=== PATIENT | female | born 1945 | race Caucasian/White ===

== ENCOUNTER 2021-06-01 07:13 | Emergency (ER) | payer OTHER ==
[~2021-06-01] VITALS: Ht 167.6 cm; Wt 74.8 kg
[2021-06-01] MEDS ORDERED: ASPirin 81 mg TAB PO ONE (07:30)
[2021-06-01 07:37] LABS: Basophils # (auto) 0.1 10 ^3/uL (0-0.2); Basophils % (auto) 1.1 % (0.0-2.0); Eosinophils # (auto) 0.3 10 ^3/uL (0-0.8); Eosinophils % (auto) 3.6 % (0.0-7.0); Hemoglobin 12.1 g/dL (12.2-16.2); Lymphocytes # (auto) 1.4 10 ^3/uL (0.4-5.4); Lymphocytes % (auto) 18.4 % (10.0-50.0); Mean Corpuscular Hemoglobin 29.8 pg (28.0-32.0); Mean Corpuscular Hgb Conc. 33.7 g/dL (32.0-36.0); Mean Corpuscular Volume 88.3 fL (80.0-100.0); Monocytes # (auto) 0.6 10 ^3/uL (0-1.3); Neutrophils # (auto) 5.3 10 ^3/uL (1.6-8.6); Neutrophils % (auto) 68.9 % (37.0-80.0); Red Blood Cells 4.08 10^6/uL (4.0-5.20); Red Cell Distribution Width 13.4 % (11.8-14.3); White Blood Cell 7.8 10^3/uL (4.4-10.8)
[2021-06-01 07:55] LABS: Albumin 3.6 g/dL (3.4-5.0); Anion Gap 15 (5-15); BUN/Creatinine Ratio 22.5; Blood Urea Nitrogen 23 mg/dL (7-18); Calcium 9.4 mg/dL (8.5-10.1); Carbon Dioxide 22 mmol/L (21-32); Chloride 105 mmol/L (98-107); GFR African American 68 mL/min; GFR Non-African American 56 mL/min; Glucose 125 mg/dL (74-106); Potassium 3.5 mmol/L (3.5-5.1); Sodium 142 mmol/L (136-145)
[2021-06-01 08:00] LABS: Alanine Aminotransferase 25 U/L (13-56); Alkaline Phosphatase 56 U/L (45-117); Aspartate Aminotransferase 15 U/L (15-37); Bilirubin, Total 0.5 mg/dL (0.2-1.0)
[2021-06-01 08:02] LABS: Urine Bacteria NONE SEEN /hpf (None Seen); Urine Blood Negative /uL (Negative); Urine Specific Gravity 1.018 (1.001-1.035); Urine WBC <1 /hpf (0 - 5)
[2021-06-01] MEDS ORDERED: cefTRIAXone 1GM/50ML D5W 50 ML IV ONE (13:00)
[2021-06-01] MEDS ORDERED: PANT40TA2 PO (14:48)
[2021-06-01 16:00] VITALS: BP 129/70
== END 2021-06-01 16:55 | disposition home or self-care (01) ==
LOC: ER 07:13
DX: I24.9 Acute ischemic heart disease, unspecified (principal); E11.9 Type 2 diabetes mellitus without complications; I10 Essential (primary) hypertension; Z88.2 Allergy status to sulfonamides; Z20.822 Contact with and (suspected) exposure to COVID-19
CPT/HCPCS: 36415; 71045; 80053; 81001; 84484; 85025; 87426; 93005; 93306; 96365; 96366; 99285; C9803; J0696; U0003

== ENCOUNTER → 2023-01-11 | Day surgery (SDC) | payer MEDICARE, BC ==
[2023-01-10 09:35] LABS: Basophils # (auto) 0.1 10 ^3/uL (0-0.2); Basophils % (auto) 0.9 % (0.0-2.0); Eosinophils # (auto) 0.5 10 ^3/uL (0-0.8); Eosinophils % (auto) 6.4 % (0.0-7.0); Hematocrit 35.9 % (36.0-46.0); Hemoglobin 11.8 g/dL (12.2-16.2); Lymphocytes # (auto) 1.2 10 ^3/uL (0.4-5.4); Lymphocytes % (auto) 17.2 % (10.0-50.0); Mean Corpuscular Hemoglobin 28.1 pg (28.0-32.0); Mean Corpuscular Hgb Conc. 32.8 g/dL (32.0-36.0); Mean Corpuscular Volume 85.7 fL (80.0-100.0); Monocytes # (auto) 0.8 10 ^3/uL (0-1.3); Monocytes % (auto) 10.6 % (0.0-12.0); Neutrophils # (auto) 4.6 10 ^3/uL (1.6-8.6); Neutrophils % (auto) 64.9 % (37.0-80.0); Nucleated Red Blood Cells % 0.1 %; Red Cell Distribution Width 14.7 % (11.8-14.3); White Blood Cell 7.1 10^3/uL (4.4-10.8)
[2023-01-10 09:51] LABS: INR 1.01 (0.9-1.15); Partial Thromboplastin Time 27.2 sec (24.6-33.4)
[2023-01-10 10:46] LABS: Potassium 3.4 mmol/L (3.5-5.1)
[2023-01-10 10:53] LABS: Albumin 3.4 g/dL (3.4-5.0); Bilirubin, Total 0.6 mg/dL (0.2-1.0); Calcium 9.2 mg/dL (8.5-10.1); Total Protein 7.4 g/dL (6.4-8.2)
[~2023-01-11] VITALS: Ht 167.6 cm; Wt 72.6 kg
[~2023-01-11] MED LIST: AML5T PO; LIDOCAINE VISCOUS 2% 15ML UD ONE; LOSA25TA38 PO; METF-370 PO; MIDAZOLAM HCL 2MG/2ML 2ml VIAL (1mg/ml) ONE; PANT40TA2 PO; PERCOT PO; PREG50CA PO; SIMV-8 PO
[2023-01-11] MEDS: diphenhdrAMINE HCL 50 MG/1 ML VL ONE ×2 (13:19→13:20)
[2023-01-11] MEDS: MIDAZOLAM HCL 2MG/2ML 2ml VIAL (1mg/ml) ONE ×2 (13:19→13:22)
[2023-01-11] MEDS: fentaNYL CITRATE 100 MCG/2 ML VL ONE ×2 (13:19→13:22)
[2023-01-11 14:05] VITALS: BP 118/46
== END | disposition home or self-care (01) ==
LOC: GI 10:49
PROVIDERS: ATTEND Internal Medicine Gastroenterology
DX: D64.9 Anemia, unspecified (principal); K44.9 Diaphragmatic hernia without obstruction or gangrene; K25.9 Gastric ulcer, unspecified as acute or chronic, without hemorrhage or perforation; K29.50 Unspecified chronic gastritis without bleeding; E11.9 Type 2 diabetes mellitus without complications
CPT/HCPCS: 36415; 43239; 80053; 82962; 85025; 85610; 85730; J1200; J2250; J3010; J7030

== ENCOUNTER → 2023-05-21 | Outpatient (CLI) | payer MEDICARE, BC ==
[~2023-05-21] MED LIST changes: -LIDOCAINE VISCOUS 2% 15ML UD ONE; +LOSA25TA15 PO; -LOSA25TA38 PO; -MIDAZOLAM HCL 2MG/2ML 2ml VIAL (1mg/ml) ONE; -SIMV-8 PO; +SIMV20TA20 PO
[2023-05-21 07:40] LABS: Basophils # (auto) 0.1 10 ^3/uL (0-0.2); Basophils % (auto) 1.1 % (0.0-2.0); Eosinophils # (auto) 0.5 10 ^3/uL (0-0.8); Eosinophils % (auto) 6.8 % (0.0-7.0); Hemoglobin 11.8 g/dL (12.2-16.2); Lymphocytes # (auto) 1.9 10 ^3/uL (0.4-5.4); Mean Corpuscular Hgb Conc. 32.8 g/dL (32.0-36.0); Mean Corpuscular Volume 85.5 fL (80.0-100.0); Monocytes # (auto) 0.7 10 ^3/uL (0-1.3); Monocytes % (auto) 10.3 % (0.0-12.0); Neutrophils # (auto) 3.9 10 ^3/uL (1.6-8.6); Neutrophils % (auto) 54.8 % (37.0-80.0); Red Blood Cells 4.21 10^6/uL (4.0-5.20); Red Cell Distribution Width 15.2 % (11.8-14.3); White Blood Cell 7.2 10^3/uL (4.4-10.8)
[2023-05-21 08:35] LABS: Alanine Aminotransferase 17 U/L (7-40); Albumin 4.5 g/dL (3.2-4.8); Alkaline Phosphatase 81 U/L (46-116); Anion Gap 10.4 (5-15); Aspartate Aminotransferase 13 U/L (13-40); BUN/Creatinine Ratio 16.8 (10.0-20.0); Bilirubin, Total 0.6 mg/dL (0.2-1.0); Blood Urea Nitrogen 18 mg/dL (9-23); Calcium 9.4 mg/dL (8.5-10.1); Carbon Dioxide 24.6 mmol/L (20-30); Chloride 103 mmol/L (98-107); Glucose 111 mg/dL (74-106); Potassium 3.6 mmol/L (3.5-5.1); Sodium 138 mmol/L (136-145)
[2023-05-21 08:38] LABS: % Iron Saturation 14.1 % (15-50)
[2023-05-21 09:34] LABS: Carcinoembryonic Antigen 1.16 ng/mL (<=5.0); Folate (Folic Acid) > 24.00 ng/mL (>5.38)
[2023-05-21 09:36] LABS: Ferritin 30.5 ng/mL (10-291)
== END | disposition home or self-care (01) ==
LOC: LAB 06:49
PROVIDERS: ATTEND Internal Medicine Gastroenterology
DX: R97.8 Other abnormal tumor markers (principal); D64.9 Anemia, unspecified
CPT/HCPCS: 36415; 80053; 82274; 82378; 82607; 82728; 82746; 83540; 83550; 85025

== ENCOUNTER 2023-10-12 16:05 | Inpatient (IN) | payer MEDICARE, BC ==
[~2023-10-12] VITALS: Ht 167.6 cm; Wt 81.1 kg
[2023-10-12 16:40] VITALS: PULSE 115; RESP 20; O2SAT 95
[2023-10-12] MEDS ORDERED: SODIUM CHLORIDE 0.9% 1,000 ML IV ONE (16:45)
[2023-10-12 17:26] LABS: Basophils # (auto) 0 10 ^3/uL (0-0.2); Basophils % (auto) 0.3 % (0.0-2.0); Eosinophils # (auto) 0.2 10 ^3/uL (0-0.8); Eosinophils % (auto) 1.6 % (0.0-7.0); Hematocrit 33.5 % (36.0-46.0); Hemoglobin 10.8 g/dL (12.2-16.2); Lymphocytes # (auto) 0.4 10 ^3/uL (0.4-5.4); Lymphocytes % (auto) 3.2 % (10.0-50.0); Mean Corpuscular Hemoglobin 28.2 pg (28.0-32.0); Mean Corpuscular Hgb Conc. 32.4 g/dL (32.0-36.0); Mean Corpuscular Volume 86.9 fL (80.0-100.0); Monocytes # (auto) 0.8 10 ^3/uL (0-1.3); Monocytes % (auto) 6.8 % (0.0-12.0); Neutrophils % (auto) 88.1 % (37.0-80.0); Nucleated Red Blood Cells % 0.1 %; Red Blood Cells 3.85 10^6/uL (4.0-5.20); Red Cell Distribution Width 15.2 % (11.8-14.3); White Blood Cell 11.3 10^3/uL (4.4-10.8)
[2023-10-12 17:43] LABS: Alanine Aminotransferase 20 U/L (7-40); Albumin 4.3 g/dL (3.2-4.8); Alkaline Phosphatase 72 U/L (46-116); Anion Gap 10 (5-15); Aspartate Aminotransferase 29 U/L (13-40); BUN/Creatinine Ratio 12.7 (10.0-20.0); Blood Urea Nitrogen 13 mg/dL (9-23); Carbon Dioxide 25 mmol/L (20-30); Chloride 105 mmol/L (98-107); Glucose 171 mg/dL (74-106); Magnesium 1.5 mg/dL (1.6-2.6); Potassium 3.6 mmol/L (3.5-5.1); Sodium 140 mmol/L (136-145)
[2023-10-12 17:44] LABS: Bilirubin, Total 0.7 mg/dL (0.2-1.0); Total Protein 6.8 g/dL (5.7-8.2)
[2023-10-12 19:09] LABS: Lactic Acid w/Reflex 3.1 mmol/L (0.4-2.0)
[2023-10-12] MEDS ORDERED: LACTATED RINGER'S 1,000 ML IV ONE (19:15)
[2023-10-12 19:55] VITALS: PULSE 111; O2SAT 95
[2023-10-12 21:49] LABS: Urine Epithelial Cast None Seen /hpf (<5)
[2023-10-12 22:00] LABS: COVID19 ANTIGEN SOFIA FIA NEGATIVE (NEGATIVE); Rapid Influenza A Negative (Negative); Rapid Influenza B Negative (Negative)
[2023-10-12 22:03] LABS: Urine Bacteria NONE SEEN /hpf (None Seen); Urine Blood Negative /uL (Negative); Urine Clarity Clear (Clear); Urine Color Colorless (Yellow); Urine Protein, UAD Negative (Negative); Urine Specific Gravity 1.007 (1.001-1.035); Urine Urobilinogen Normal (Negative); Urine WBC 2 /hpf (0 - 5); Urine pH 6.5 (5.0-8.0)
[2023-10-12] MEDS ORDERED: CEPH250C PO (22:28)
[2023-10-12] MEDS ORDERED: cefTRIAXone 1GM/50ML D5W 50 ML IV ONE (22:30)
[2023-10-12] MEDS: MAGNESIUM SULFATE 1GM/100ML 100 ML IV SCH (22:49)
[2023-10-12] MEDS ORDERED: DEXTROSE (50%) 50ML SYRG IV PRN (23:30)
[2023-10-12] MEDS ORDERED: MORPHINE SULFATE INJ 2 MG/ml SYRG IV PRN (23:30)
[2023-10-12] MEDS ORDERED: ONDANSETRON HCL 4 MG/2 ML VIAL IV PRN (23:30)
[2023-10-12] MEDS ORDERED: NITROGLYCERIN 0.4 MG SL TAB SL PRN (23:30)
[2023-10-12] MEDS ORDERED: DOCUSATE SOD 100 MG CAP PO PRN (23:30)
[2023-10-12] MEDS ORDERED: ACETAMINOPHEN 325 MG TAB PO PRN (23:30)
[2023-10-12] MEDS ORDERED: MELATONIN 5 MG TAB ONE (23:58)
[2023-10-13] MEDS: MAGNESIUM SULFATE 1GM/100ML 100 ML IV SCH ×2 (00:09→00:11)
[2023-10-13] MEDS ORDERED: MAGNESIUM SULFATE 1GM/100ML 100 ML IV ONE (00:10)
[2023-10-13 04:48] LABS: Basophils # (auto) 0 10 ^3/uL (0-0.2); Basophils % (auto) 0.5 % (0.0-2.0); Eosinophils # (auto) 0.3 10 ^3/uL (0-0.8); Hematocrit 32.2 % (36.0-46.0); Hemoglobin 10.3 g/dL (12.2-16.2); Lymphocytes # (auto) 0.9 10 ^3/uL (0.4-5.4); Lymphocytes % (auto) 10.3 % (10.0-50.0); Mean Corpuscular Hemoglobin 27.9 pg (28.0-32.0); Mean Corpuscular Hgb Conc. 31.8 g/dL (32.0-36.0); Mean Corpuscular Volume 87.6 fL (80.0-100.0); Monocytes # (auto) 0.9 10 ^3/uL (0-1.3); Monocytes % (auto) 9.5 % (0.0-12.0); Neutrophils # (auto) 6.9 10 ^3/uL (1.6-8.6); Neutrophils % (auto) 76.7 % (37.0-80.0); Nucleated Red Blood Cells % 0.1 %; Red Blood Cells 3.68 10^6/uL (4.0-5.20); Red Cell Distribution Width 15.3 % (11.8-14.3)
[2023-10-13 05:09] LABS: Alanine Aminotransferase 14 U/L (7-40); Alkaline Phosphatase 61 U/L (46-116); Anion Gap 7 (5-15); Aspartate Aminotransferase 17 U/L (13-40); Blood Urea Nitrogen 7 mg/dL (9-23); Calcium 8.5 mg/dL (8.7-10.4); Carbon Dioxide 27 mmol/L (20-30); Chloride 108 mmol/L (98-107); Glucose 109 mg/dL (74-106); Potassium 3.4 mmol/L (3.5-5.1); Sodium 142 mmol/L (136-145)
[2023-10-13 05:10] LABS: Albumin 3.7 g/dL (3.2-4.8); Bilirubin, Total 0.7 mg/dL (0.2-1.0); Total Protein 5.8 g/dL (5.7-8.2)
[2023-10-13] MEDS: SODIUM CHLOR 0.9% PF (SALINE LOCK) 10ML VIAL/SYR IV SCH ×3 (06:52→21:59)
[2023-10-13] MEDS: ACCU-CHEK COMFORT CURVE STRIP VI SCH ×4 (07:00→21:59)
[2023-10-13] MEDS: InsuLIN REG 1unit/0.01ml Soln (100units/ml) SC SCH ×3 (07:50→16:58)
[2023-10-13 08:10] VITALS: RESP 20; O2SAT 96
[2023-10-13] MEDS: cefTRIAXone 1GM/50ML D5W 50 ML IV SCH (08:34)
[2023-10-13] MEDS: HYDROcodone-ACET 5/325MG TAB PO PRN ×2 (13:17→21:15)
[2023-10-13] MEDS: SODIUM CHLORIDE 0.9% 1,000 ML IV SCH ×2 (13:49→21:03)
[2023-10-13 19:40] VITALS: PULSE 89; RESP 17; O2SAT 95
[2023-10-13] MEDS ORDERED: InsuLIN REG 1unit/0.01ml Soln (100units/ml) SC SCH (22:00)
[2023-10-13] MEDS ORDERED: METH-1181 PO (23:42)
[2023-10-13 23:50] VITALS: PULSE 94; RESP 18; O2SAT 98
[2023-10-14] VITALS (7 sets, daily range): BP systolic 116–135; BP diastolic 48–62; PULSE 82–97; RESP 16–19; TEMP 97.7–98; O2SAT 93–98
[2023-10-14] MEDS: HYDROcodone-ACET 5/325MG TAB PO PRN ×3 (04:37→23:10)
[2023-10-14] MEDS: SODIUM CHLORIDE 0.9% 1,000 ML IV SCH ×3 (04:39→21:17)
[2023-10-14] MEDS: ACCU-CHEK COMFORT CURVE STRIP VI SCH (06:06)
[2023-10-14] MEDS: SODIUM CHLOR 0.9% PF (SALINE LOCK) 10ML VIAL/SYR IV SCH ×3 (06:06→21:14)
[2023-10-14] MEDS: InsuLIN REG 1unit/0.01ml Soln (100units/ml) SC SCH (06:06)
[2023-10-14] MEDS: PANTOPRAZOLE 40 MG TAB PO SCH (09:20)
[2023-10-14] MEDS: cefTRIAXone 1GM/50ML D5W 50 ML IV SCH (09:20)
[2023-10-14] MEDS: metFORMIN HYDROCHLORIDE 500 MG TAB PO SCH ×2 (10:00→20:20)
[2023-10-14] MEDS ORDERED: TEMAZEPAM 15 MG CAP PO ONE ×2 (22:00)
[2023-10-15 05:00] VITALS: BP 142/52; PULSE 94; RESP 16; TEMP 97.9; O2SAT 95
[2023-10-15] MEDS: SODIUM CHLOR 0.9% PF (SALINE LOCK) 10ML VIAL/SYR IV SCH ×2 (06:32→14:00)
[2023-10-15] MEDS: HYDROcodone-ACET 5/325MG TAB PO PRN (06:32)
[2023-10-15] MEDS: SODIUM CHLORIDE 0.9% 1,000 ML IV SCH ×2 (06:33→12:22)
[2023-10-15 08:00] VITALS: PULSE 87
[2023-10-15 09:00] VITALS: BP 146/62; PULSE 84; RESP 19; TEMP 98; O2SAT 96
[2023-10-15] MEDS: cefTRIAXone 1GM/50ML D5W 50 ML IV SCH (09:00)
[2023-10-15] MEDS ORDERED: CIPR-173 PO (09:56)
[2023-10-15] MEDS: metFORMIN HYDROCHLORIDE 500 MG TAB PO SCH (11:01)
[2023-10-15] MEDS: PANTOPRAZOLE 40 MG TAB PO SCH (11:01)
[2023-10-15 13:00] VITALS: BP 136/61; PULSE 87; RESP 19; TEMP 97.8; O2SAT 95
== END 2023-10-15 15:45 | disposition home or self-care (01) | DRG 872 ==
LOC: ER 16:05 → EDBD 16:05 → TELE 23:26 → TELE-CENTR 10-13 23:03
PROVIDERS: ADMIT Nurse Practitioner Family; ATTEND Family Medicine
DX: A41.9 Sepsis, unspecified organism (principal); E87.21 Acute metabolic acidosis; N39.0 Urinary tract infection, site not specified; E83.42 Hypomagnesemia; E11.65 Type 2 diabetes mellitus with hyperglycemia; Z20.822 Contact with and (suspected) exposure to COVID-19; G47.00 Insomnia, unspecified; I10 Essential (primary) hypertension
CPT/HCPCS: 36415; 71045; 80053; 81001; 82962; 83605; 83735; 85025; 87040; 87086; 87426; 87804; 93005; 96360; 96361; G0378

== ENCOUNTER 2024-07-11 06:27 | Emergency (ER) | payer MEDICARE, BC ==
[~2024-07-11] VITALS: Ht 167.6 cm; Wt 73.4 kg
[~2024-07-11 06:27] MED LIST changes: +CEPH250C PO; +CIPR-173 PO; +LOSA-533 PO; -LOSA25TA15 PO; +METH-1181 PO; -PANT40TA2 PO
[2024-07-11 07:10] VITALS: BP 131/61; PULSE 105; RESP 18; TEMP 97.8; O2SAT 95
[2024-07-11] MEDS: cefTRIAXone SOD 1,000 MG VL IM ONE (07:19)
[2024-07-11] MEDS: cefTRIAXone SOD 1,000 MG VL ONE (07:32)
[2024-07-11] MEDS ORDERED: AZIT-185 PO (07:51)
[2024-07-11] MEDS ORDERED: BENZ200C64 PO (07:51)
== END 2024-07-11 07:49 | disposition home or self-care (01) ==
LOC: ER 06:27
DX: J02.9 Acute pharyngitis, unspecified (principal); J20.9 Acute bronchitis, unspecified; Z88.2 Allergy status to sulfonamides
CPT/HCPCS: 71046; 96372; 99283; J0696

== ENCOUNTER 2025-07-16 19:51 | Inpatient (IN) | payer BC, MEDICARE, OTHER ==
[~2025-07-16] VITALS: Ht 167.6 cm; Wt 77.7 kg
[~2025-07-16 19:51] MED LIST changes: +AZIT-185 PO; +BENZ200C64 PO
[2025-07-16 21:09] LABS: Hematocrit 31.8 % (36.0-46.0); Hemoglobin 10.4 g/dL (12.2-16.2); Mean Corpuscular Hemoglobin 28.9 pg (28.0-32.0); Mean Corpuscular Volume 88.0 fL (80.0-100.0); Nucleated Red Blood Cells % 0.1 %
--- NOTE | 2025-07-16 21:14 | DVH ---
Exam: CT CT AB PEL WO CON-NO ORAL OR IV History: abd pain Comparison Study: US ABDOMEN COMPLETE on DOS: 07/05/25, XR ABDOMEN 2 VIEW on DOS: 07/05/25, CT CT AB PEL WO CON-NO ORAL OR IV on DOS: 12/14/22, ECIDC on DOS: 06/01/21 TECHNIQUE: Multidetector CT of the abdomen and pelvis was performed from lung bases to pubic symphysi s. Imaging was performed without IV contrast. Axial, coronal, and sagittal multiplanar reformats were obtained from the axial data set by the technologist. RADIATION DOSE: CTDI vol 22.35 mGy. DLP 1174.48 mGy.cm Findings: Limited evaluation of the solid organs in the absence of IV contrast. Lungs: The lung bases are clear. Liver: Unremarkable. Spleen: Unremarkable. Pancreas: Unremarkable. Gallbladder: Unremarkable. Adrenals: Unchanged indeterminate 2 cm left adrenal nodule. Kidneys: Unremarkable. Pelvic Viscera: Evaluation is degraded by streak artifact from adjacent hardware. Vasculature: Atherosclerotic aortoiliac calcification. Retroperitoneum: Shotty retroperitoneal nodes. Bowel: Evaluation of the bowel within the pelvis is limited due to streak artifact from adjacent hip hardware. There is suggestion of mild stranding about the sigmoid colon, suboptimally assessed. Colon ic diverticulosis without definite CT evidence of diverticulitis. No bowel obstruction. Small hiatal hernia. Musculoskeletal: Bilateral hip arthroplasties. Soft tissues: Unremarkable Impression: 1. Evaluation of the pelvis is degraded by streak artifact, though there is suggestion of colonic div erticulosis with possible stranding about the sigmoid colon. Acute diverticulitis cannot be excluded in the appropriate clinical setting. 2. Additional findings as detailed.
--- NOTE | 2025-07-16 21:16 | DVH ---
CHEST RADIOGRAPH Indication: cp Technique: Single frontal view of the chest was obtained COMPARISON: CR CHEST 2 VIEW on DOS: 09/10/24, XY CHEST TWO VIEWS ROUTINE on DOS: 07/11/24, XY CHEST P ORTABLE on DOS: 10/12/23, XY CHEST XRAY 1 VIEW on DOS: 12/14/22, CHEST PORTABLE on DOS: 06/01/21 FINDINGS: Lines and Tubes: None Lungs: Clear Pleura: No effusion. No pneumothorax. Cardiomediastinal contours: Unremarkable Bones: Unremarkable IMPRESSION: 1. No acute disease.
[2025-07-16 21:25] LABS: Alanine Aminotransferase 19 U/L (7-40); Albumin 4.1 g/dL (3.2-4.8); Alkaline Phosphatase 71 U/L (46-116); Anion Gap 13 (5-15); BUN/Creatinine Ratio 16.1 (10.0-20.0); Bilirubin, Total 0.8 mg/dL (0.2-1.0); Blood Urea Nitrogen 24 mg/dL (9-23); Carbon Dioxide 23 mmol/L (20-31); Chloride 99 mmol/L (98-107); Glucose 134 mg/dL (74-106); Potassium 3.9 mmol/L (3.5-5.1); Sodium 135 mmol/L (136-145); Total Protein 6.6 g/dL (5.7-8.2)
[2025-07-16 21:26] LABS: Calcium 8.4 mg/dL (8.7-10.4)
[2025-07-16] MEDS: SODIUM CHLORIDE 0.9% 1,800 ML IV ONE (21:30)
[2025-07-16 21:55] LABS: Lactic Acid w/Reflex 3.2 mmol/L (0.4-2.0)
[2025-07-16 22:26] LABS: Urine Protein, UAD 1+ (Negative)
[2025-07-16] MEDS: VANCOMYCIN 1GM/250ML KIT 250 ML IV ONE (22:46)
--- NOTE | 2025-07-16 22:47 | ED.PDOC ---
History of Present Illness HPI Comments Patient brought in by EMS. Patient was complaining of intermittent nausea vomiting. States it happened approximately 20 minutes ago. She felt cold and chills so she called EMS to come in. Patient has a history of recurrent UTIs. Has had sepsis in the past. Nothing makes it better, nothing makes it worse. Chief Complaint: Nausea/Vomiting Time Seen by MD: 20:07 Primary Care Provider: Reviewed Notes: Nurses Notes Allergies: Coded Allergies: Sulfa Antibiotics (Verified Allergy, Unknown, 06/01/21) Home Meds Active Scripts Benzonatate (Benzonatate) 200 Mg Cap, 1 CAP PO TID, #30 CAP Prov:EMELINA SZYMANSKI 07/11/24 Azithromycin (ZITHROMAX TABLET) 250 Mg Tb, 250 MG PO DAILY, #6 TAB Prov:EMELINA SZYMANSKI 07/11/24 Ciprofloxacin Hcl (Cipro) 500 Mg Tab, 1 TAB PO BID, #14 TAB Prov:OLGA LIDIA KLINE MD 10/15/23 Cephalexin (KEFLEX CAPSULE) 250 Mg Cp, 1 CAP PO QID, #40 CAP Prov:LIVAN NIEVES MD 10/12/23 Reported Medications Methocarbamol (Methocarbamol) 500 Mg Tab, 1 TAB PO Q6HPRN PRN for muscle spasm 10/13/23 Pregabalin (Lyrica) Unknown Strength Cap, PO, CAP 01/10/23 Amlodipine Besylate (NORVASC TABLET) 5 Mg Tb, 5 MG PO DAILY, TAB 01/10/23 Losartan Potassium (Losartan Potassium) 25 Mg Tab, 25 MG PO DAILY, TAB 01/10/23 Metformin Hydrochloride (Metformin Hcl) 500 Mg Tab, 500 MG PO BID, TAB 01/10/23 Simvastatin (Simvastatin) 20 Mg Tab, 20 MG PO DAILY, TAB 01/10/23 Oxycodone W/ Acetaminophen (Percocet 5/325MG) 1 Tab Tb, 1 TAB PO Q4HPRN PRN for prn, #90 TAB 12/15/22 Information Source: Patient Mode of Arrival: EMS Past Medical History PAST MEDICAL HISTORY: DM, HTN Surgical History: Denies all surgeries HOUSECLEANER 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: No 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 History Family History Family History: Reviewed,noncontributory to illness Social History Smoker: Non-Smoker Alcohol: Denies ETOH Use Drugs: Denies Drug Use Lives In: Home Constitutional: reports: fatigue, fever, weakness; denies: chills, diaphoresis, malaise, sweats, others EENTM: denies: blurred vision, double vision, ear bleeding, ear discharge, ear drainage, ear pain, ear ringing, eye pain, eye redness, hearing loss, mouth pain, mouth swelling, nasal discharge, nose bleeding, nose congestion, nose pain, photophobia, tearing, throat pain, throat swelling, voice changes, others Respiratory: denies: cough, hemoptysis, orthopnea, SOB at rest, shortness of breath, SOB with excertion, stridor, wheezing, others Cardiovascular: denies: chest pain, dizzy spells, diaphoresis, Dyspnea on exertion, edema, irregular heart beat, left arm pain, lightheadedness, palpitations, PND, syncope, others Gastrointestinal: reports: nausea, vomiting; denies: abdomen distended, abdominal pain, blood streaked bowels, constipated, diarrhea, dysphagia, difficulty swallowing, hematemesis, melena, poor appetite, poor fluid intake, rectal bleeding, rectal pain, others Genitourinary: denies: abnormal vagina bleeding, burning, dyspareunia, dysuria, flank pain, frequency, hematuria, incontinence, pain, , vagina discharge, urgency, others Neurological: denies: dizziness, fainting, headache, left sided numbness, left sided weakness, numbness, paresthesia, pre-existing deficit, right sided numbness, right sided weakness, seizure, speech problems, tingling, tremors, weakness, others Musculoskeletal: denies: back pain, gout, joint pain, joint swelling, muscle pain, muscle stiffness, neck pain, others Integumetry: denies: bruises, change in color, change in hair/nails, dryness, laceration, lesions, lumps, rash, wounds, others Physical Exam General Appearance: No Apparent Distress, Obese HEENT: Normal ENT Inspection, Pharynx Normal, TMs Normal Neck: Full Range of Motion, Non-Tender, Normal, Normal Inspection Respiratory: Chest Non-Tender, Lungs Clear, No Accessory Muscle Use, No Respiratory Distress, Normal Breath Sounds Cardiovascular: No Edema, No JVD, No Murmur, No Gallop, Normal Peripheral Pulses, Regular Rate/Rhythm Breast Exam: Deferred Gastrointestinal: No Organomegaly, Non Tender, No Pulsatile Mass, Normal Bowel Sounds, Soft Genitalia: Deferred Pelvic: Deferred Rectal: Deferred Extremities: No calf tenderness, Normal capillary refill, Normal inspection, Normal range of motion, Non-tender, No pedal edema Musculoskeletal : Apperance: Normal Neurologic: Alert, sleep technician II-XII nml as Tested, No Motor Deficits, Normal Affect, Normal Mood, No Sensory Deficits Cerebellar Function: Normal Reflexes: Normal Skin: Dry, Normal Color, Warm Lymphatic: No Adenopathy Was a procedure done? Was a procedure done?: No Differential Dx Considerations may include: Urosepsis, pneumonia, URI, X-Ray, Labs, Meds, VS Vital Signs Date Time Temp Pulse Resp B/P (MAP) Pulse Ox O2 Delivery O2 Flow Rate FiO2 07/16/25 20:45 Nasal Cannula* 2 28 07/16/25 20:45 99.0 115 21 96/52 (67) 95 99.0 07/16/25 19:58 103.1 127 28 100/55 93 103.1 07/16/25 19:55 125 Lab Test 07/16/25 21:20 07/16/25 20:50 Range/Units Urine Color Light-yellow Yellow Urine Clarity Turbid H Clear Urine pH 6.0 5.0-9.0 Urine Specific [place] 1.016 1.001-1.035 Urine Protein 1+ H Negative Urine Ketones Negative Negative Urine Blood Negative Negative /uL Urine Nitrite 2+ H Negative Urine Bilirubin Negative Negative Urine Urobilinogen Normal Negative mg/dL Urine Leukocyte Esterase 3+ Negative /uL Urine RBC 4 0 - 4 /hpf Urine Microscopic WBC 146 H 0-5 /HPF Urine Squamous Epithelial Cells Few <5 /hpf Urine Bacteria Few H None Seen /hpf Urine Mucus Few None Seen Urine Glucose Normal Normal mg/dL White Blood Count 11.4 H 4.4-10.8 10^3/uL Red Blood Count 3.61 L 4.0-5.20 10^6/uL Hemoglobin 10.4 L 12.2-16.2 g/dL Hematocrit 31.8 L 36.0-46.0 % Mean Corpuscular Volume 88.0 80.0-100.0 fL Mean Corpuscular Hemoglobin 28.9 28.0-32.0 pg Mean Corpuscular Hemoglobin Concent 32.8 32.0-36.0 g/dL Red Cell Distribution Width 14.1 11.8-14.3 % Platelet Count 238 140-450 10^3/uL Mean Platelet Volume 8.2 6.9-10.8 fL Neutrophils (%) (Auto) 95.0 H 37.0-80.0 % Lymphocytes (%) (Auto) 2.5 L 10.0-50.0 % Monocytes (%) (Auto) 1.7 0.0-12.0 % Eosinophils (%) (Auto) 0.6 0.0-7.0 % Basophils (%) (Auto) 0.2 0.0-2.0 % Neutrophils # (Auto) 10.8 H 1.6-8.6 10 ^3/uL Lymphocytes # (Auto) 0.3 L 0.4-5.4 10 ^3/uL Monocytes # (Auto) 0.2 0-1.3 10 ^3/uL Eosinophils # (Auto) 0.1 0-0.8 10 ^3/uL Basophils # (Auto) 0 0-0.2 10 ^3/uL Nucleated Red Blood Cells 0.1 % Sodium Level 135 L 136-145 mmol/L Potassium Level 3.9 3.5-5.1 mmol/L Chloride Level 99 98-107 mmol/L Carbon Dioxide Level 23 20-31 mmol/L Anion Gap 13 5-15 Blood Urea Nitrogen 24 H 9-23 mg/dL Creatinine 1.49 H 0.550-1.02 mg/dL Glomerular Filtration Rate Calc 35 >90 mL/min BUN/Creatinine Ratio 16.1 10.0-20.0 Serum Glucose 134 H 74-106 mg/dL Lactic Acid Level 3.2 *H 0.4-2.0 mmol/L Calcium Level 8.4 L 8.7-10.4 mg/dL Total Bilirubin 0.8 0.2-1.0 mg/dL Aspartate Amino Transferase (AST) 22 13-40 U/L Alanine Aminotransferase (ALT) 19 7-40 U/L Alkaline Phosphatase 71 46-116 U/L Total Protein 6.6 5.7-8.2 g/dL Albumin 4.1 3.2-4.8 g/dL Current Medications Medications (Trade) Dose Ordered Sig/Luann Route Start Time Stop Time Status Last Admin Ceftriaxone Sodium 50 ml @ 100 mls/hr ONCE ONCE IV 07/16/25 21:30 07/16/25 21:59 DC 07/16/25 21:30 Sodium Chloride 1,800 ml @ 1,000 mls/hr ONCE ONCE IV 07/16/25 21:30 07/16/25 23:17 07/16/25 21:30 X-Ray, Labs, Meds, VS Comment Patient will be admitted for urosepsis Patient is started on 30 mL/kilos bolus Patient is started on vancomycin and Rocephin Blood cultures drawn Patient hemodynamically stable Time of 1ST Reevaluation: 22:47 Reevaluation 1ST: Improved Patient Education/Counseling: Diagnosis, Treatment Family Education/Counseling: Diagnosis SEPSIS Sepsis Screen Date sepsis recognized/suspect: Jul 16, 2025 Time Sepsis recognized/suspect: 2044 Recent Procedure: No On Antibiotic Therapy: No Respiratory Rate >20: Yes Heart Rate >90: Yes Temp<36 C (96.8 F) or >38.3 C: No SBP <90 or MAP <65 mmHG: No New Acute Mental Status Change: No Is the patient on CPAP, BIPAP,: No Physician Orders Electrocardigram (07/16/25 20:00) Blood Culture (07/16/25 20:20) Chest Xray 1 View (07/16/25 20:20) Ct Ab Pel Wo Con-No Oral Or Iv (07/16/25 20:20) Vancomycin 1gm/250ml Kit (07/16/25 22:30) Sodium Chloride 0.9% (07/16/25 21:30) Vital Signs Date Time Temp Pulse Resp B/P (MAP) Pulse Ox O2 Delivery O2 Flow Rate FiO2 07/16/25 20:45 Nasal Cannula* 2 28 07/16/25 20:45 99.0 115 21 96/52 (67) 95 99.0 07/16/25 19:58 103.1 127 28 100/55 93 103.1 07/16/25 19:55 125 Laboratory Tests Test 07/16/25 20:50 Lactic Acid Level 3.2 mmol/L (0.4-2.0) *H White Blood Count 11.4 10^3/uL (4.4-10.8) H Medications Medications Dose Ordered Sig/Luann Route Start Time Stop Time Status Last Admin Dose Admin Ceftriaxone Sodium 50 ml @ 100 mls/hr ONCE ONCE IV 07/16/25 21:30 07/16/25 21:59 DC 07/16/25 21:30 Sodium Chloride 1,800 ml @ 1,000 mls/hr ONCE ONCE IV 07/16/25 21:30 07/16/25 23:17 07/16/25 21:30 Departure 1 Departure Time of Disposition: 22:46 Impression: Primary Impression: Elevated lactic acid level Additional Impression: Urinary tract infection Qualified Codes: N30.01 - Acute cystitis with hematuria Disposition: ADMITTED INPATIENT Condition: Stable Critical Care Note Critical Care Time?: No Stability Stability form required: No Heart Score Heart Score: Heart Score Response (Comments) Value History N/A 0 EKG N/A 0 Age N/A 0 Risk Factors N/A 0 Troponin N/A 0 Total 0 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
[2025-07-17] MEDS ORDERED: DOCUSATE SOD 100 MG CAP PO PRN (01:00)
[2025-07-17] MEDS ORDERED: HYDROcodone-ACET 5/325MG TAB PO PRN (01:00)
[2025-07-17] MEDS ORDERED: DEXTROSE (50%) 50ML SYRG IV PRN (01:00)
[2025-07-17] MEDS ORDERED: NITROGLYCERIN 0.4 MG SL TAB SL PRN (01:00)
[2025-07-17] MEDS: SODIUM CHLORIDE 0.9% 2,000 ML IV SCH (01:24)
[2025-07-17] MEDS ORDERED: VANCOMYCIN PER PHARMACY 0 MG IV SCH (02:30)
--- NOTE | 2025-07-17 02:51 | DVHHP2 ---
History of Present Illness Reason for Visit: Fevers, nausea, vomit History of Present Illness 80-year-old female with past medical history of DM, hypertension, hyperlipidemia presents with complaints of fevers, chills x3 days. Patient is also endorsing nausea/vomiting x1 day. Endorsed that she has previously had UTI with sepsis. On arrival to the emergency department patient is noted to be febrile with temperature 103.1, tachycardic HR 127, and mildly hypotensive with blood pressure 100/55. During the emergency department evaluation W11.4, H&H 10.4/31.8, PLT 238, Na 135, K3.9, BUN 24, creatinine 1.49, GFR 35, LA 3.2/1.6. UA positive for leukocyte esterase, WBC, RBC. CXR no acute disease, abdomen and pelvis CT without contrast read streak artifact from hardware, colonic diverticulosis with possible stranding about the sigmoid colon. Acute diverticulitis can not be excluded at this time patient denies any dizziness, shortness of breath, cough, congestion chest pain, diarrhea, hematemesis, hematochezia, melena, dysuria Cardiovascular: HTN, hyperipidemia Endocrine: Diabetes Smoke: No ALCOHOL: none Drugs: None Lives: with Family Review of Systems Constitutional: Yes: Fever, Chills, Weakness, Malaise; No: Sweats, Other Eyes: No: Pain, Vision change, Conjunctivae inflammation, Eyelid inflammation, Other, Redness ENT: No: Ear pain, Ear discharge, Nose pain, Nose discharge, Nose congestion, Mouth pain, Mouth swelling, Throat pain, Throat swelling, Other Respiratory: No: Cough, Dry, Shortness of breath, SOB with excertion, Wheezing, Hemoptysis, Pleuritic Pain, Sputum, Wheezing, Other Cardiovascular: No: Chest Pain, Palpitations, Orthopnea, Paroxysmal Noc. Dyspnea, Edema, Lt Headedness, Other Gastrointestinal: Nausea, Vomiting; No: Abdominal Pain, Diarrhea, Constipation, Melena, Hematochezia, Other Genitourinary: No Dysuria, No Frequency, No Incontinence, No Hematuria, No Retention, No Other Musculoskeletal: No: other, neck pain, shoulder pain, arm pain, back pain, hand pain, leg pain, foot pain Skin: No: Rash, Lesions, Jaundice, Bruising, Other Neurological: No: Weakness, Numbness, Incoordination, Change in speech, Confusion, Seizures, Other Allergies: Coded Allergies: Sulfa Antibiotics (Verified Allergy, Unknown, 06/01/21) Medications Current Medications Medications Dose Ordered Sig/Luann Route Start Time Stop Time Status Last Admin Dose Admin Sodium Chloride 2,000 ml @ 100 mls/hr Q20H IV 07/17/25 01:00 07/17/25 20:59 07/17/25 01:24 100 MLS/HR Docusate Sodium 100 mg BIDPRN PRN PO 07/17/25 01:00 Acetaminophen 650 mg Q6HP PRN PO 07/17/25 01:00 Acetaminophen/ Hydrocodone Bitart 1 tab Q4HP PRN PO 07/17/25 01:00 Ondansetron HCl 4 mg Q4HP PRN IV 07/17/25 01:00 Nitroglycerin 0.4 mg Q5MINP PRN SL 07/17/25 01:00 Morphine Sulfate 2 mg Q30M PRN IV 07/17/25 01:00 Diagnostic Test (Pha) 1 strip ACHS 07/17/25 07:00 Insulin Human Regular ACHS SC 07/17/25 07:00 Dextrose 50 ml UD PRN IV 07/17/25 01:00 Ceftriaxone Sodium 50 ml @ 100 mls/hr DAILY IV 07/17/25 10:00 Norepinephrine Bitartrate 250 ml @ 3.75 mls/hr Q24H IV 07/17/25 02:30 Vancomycin HCl 0 ml @ 0 mls/hr PER PHARMACY IV 07/17/25 02:30 UNV Exam Vital Signs Vital Signs Date Time Temp Pulse Resp B/P (MAP) Pulse Ox O2 Delivery O2 Flow Rate FiO2 07/17/25 01:30 91 16 91/38 (55) 95 07/16/25 20:45 Nasal Cannula* 2 28 07/16/25 20:45 99.0 99.0 General Appearance: Alert, Oriented X3, Cooperative, moderate distress HEENT: Atraumatic, PERRLA, EOMI Respiratory: Clear to auscultation, Normal air movement Cardiovascular: Regular rate, Normal S1, Normal S2 Abdominal: Normal bowel sounds, Soft, No tenderness Extremities: No clubbing, No edema Skin: No rashes, No breakdown Neuro: Normal speech, Strength at 5/5 X4 ext Psych/Mental Status: Mental status NL, Mood NL Labs/Xrays Labs Test 07/16/25 22:43 07/16/25 21:20 07/16/25 20:50 Range/Units Lactic Acid Level 1.6 0.4-2.0 mmol/L Urine Color Light-yellow Yellow Urine Clarity Turbid H Clear Urine pH 6.0 5.0-9.0 Urine Specific [place] 1.016 1.001-1.035 Urine Protein 1+ H Negative Urine Ketones Negative Negative Urine Blood Negative Negative /uL Urine Nitrite 2+ H Negative Urine Bilirubin Negative Negative Urine Urobilinogen Normal Negative mg/dL Urine Leukocyte Esterase 3+ Negative /uL Urine RBC 4 0 - 4 /hpf Urine Microscopic WBC 146 H 0-5 /HPF Urine Squamous Epithelial Cells Few <5 /hpf Urine Bacteria Few H None Seen /hpf Urine Mucus Few None Seen Urine Glucose Normal Normal mg/dL White Blood Count 11.4 H 4.4-10.8 10^3/uL Red Blood Count 3.61 L 4.0-5.20 10^6/uL Hemoglobin 10.4 L 12.2-16.2 g/dL Hematocrit 31.8 L 36.0-46.0 % Mean Corpuscular Volume 88.0 80.0-100.0 fL Mean Corpuscular Hemoglobin 28.9 28.0-32.0 pg Mean Corpuscular Hemoglobin Concent 32.8 32.0-36.0 g/dL Red Cell Distribution Width 14.1 11.8-14.3 % Platelet Count 238 140-450 10^3/uL Mean Platelet Volume 8.2 6.9-10.8 fL Neutrophils (%) (Auto) 95.0 H 37.0-80.0 % Lymphocytes (%) (Auto) 2.5 L 10.0-50.0 % Monocytes (%) (Auto) 1.7 0.0-12.0 % Eosinophils (%) (Auto) 0.6 0.0-7.0 % Basophils (%) (Auto) 0.2 0.0-2.0 % Neutrophils # (Auto) 10.8 H 1.6-8.6 10 ^3/uL Lymphocytes # (Auto) 0.3 L 0.4-5.4 10 ^3/uL Monocytes # (Auto) 0.2 0-1.3 10 ^3/uL Eosinophils # (Auto) 0.1 0-0.8 10 ^3/uL Basophils # (Auto) 0 0-0.2 10 ^3/uL Nucleated Red Blood Cells 0.1 % Sodium Level 135 L 136-145 mmol/L Potassium Level 3.9 3.5-5.1 mmol/L Chloride Level 99 98-107 mmol/L Carbon Dioxide Level 23 20-31 mmol/L Anion Gap 13 5-15 Blood Urea Nitrogen 24 H 9-23 mg/dL Creatinine 1.49 H 0.550-1.02 mg/dL Glomerular Filtration Rate Calc 35 >90 mL/min BUN/Creatinine Ratio 16.1 10.0-20.0 Serum Glucose 134 H 74-106 mg/dL Calcium Level 8.4 L 8.7-10.4 mg/dL Total Bilirubin 0.8 0.2-1.0 mg/dL Aspartate Amino Transferase (AST) 22 13-40 U/L Alanine Aminotransferase (ALT) 19 7-40 U/L Alkaline Phosphatase 71 46-116 U/L Total Protein 6.6 5.7-8.2 g/dL Albumin 4.1 3.2-4.8 g/dL SEPSIS Sepsis Screen Date sepsis recognized/suspect: Jul 16, 2025 Time Sepsis recognized/suspect: 2044 Recent Procedure: No On Antibiotic Therapy: No Respiratory Rate >20: Yes Heart Rate >90: Yes Temp<36 C (96.8 F) or >38.3 C: No SBP <90 or MAP <65 mmHG: No New Acute Mental Status Change: No Is the patient on CPAP, BIPAP,: No Physician Orders Electrocardigram (07/16/25 20:00) Blood Culture (07/16/25 20:20) Chest Xray 1 View (07/16/25 20:20) Ct Ab Pel Wo Con-No Oral Or Iv (07/16/25 20:20) Urine Bacterial Culture (07/17/25 00:30) Admit (07/17/25 00:55) Code Status (07/17/25 00:55) Vital Signs .PER UNIT PROTOCOL (07/17/25 00:55) Review Orders With Adm. (07/17/25 00:55) Encourage Activity As Tolerate (07/17/25 00:55) Consistent Carb(Ccho)Diabetes (07/17/25 Breakfast) Sodium Chloride 0.9% (07/17/25 01:00) Oxygen By Face Mask (07/17/25 00:55) Docusate Sodium Capsule (Colace Capsule) (07/17/25 01:00) Acetaminophen Tablet (Tylenol Tablet) (07/17/25 01:00) Notify Md Of Changes From Base (07/17/25 00:55) Advance Directive (07/17/25 00:55) Basic Metabolic Panel (07/17/25 05:00) Basic Metabolic Panel (07/18/25 05:00) Basic Metabolic Panel (07/19/25 05:00) Basic Metabolic Panel (07/20/25 05:00) Basic Metabolic Panel (07/21/25 05:00) Complete Blood Count (07/17/25 05:00) Complete Blood Count (07/18/25 05:00) Complete Blood Count (07/19/25 05:00) Complete Blood Count (07/20/25 05:00) Complete Blood Count (07/21/25 05:00) Patient Condition (07/17/25:55) Allergies (07/17/25:55) Hydrocodone-Acet 5/325mg Tab ([place] 5/32 (07/17/25 01:00) Ondansetron Hcl (Zofran) (07/17/25 01:00) Nitroglycerin Sublingual (Ntrostat Subli (07/17/25 01:00) Morphine Sulfate Injection (07/17/25 01:00) Stat Ekg For Chest Pain (07/17/25 00:55) Notify Md Of Changes From Base (07/17/25 00:55) Business Services Associate For 24 Hours (07/17/25 00:55) Emergency Dysrhythmia Protocol (07/17/25 00:55) Rhythm Strips Once Every Shift (07/17/25 00:55) Oxygen By Nasal Cannula (07/17/25 00:55) Glucose Blood (Accu-Chek Comfort Curve T (07/17/25 07:00) Insulin R (Human) (Insulin R) (07/17/25 07:00) Dextrose 50% Syringe (07/17/25 01:00) * Infectious [place]- Dr. Matta (07/17/25 00:55) Ceftriaxone 1gm/50ml (Rocephin) (07/17/25 10:00) Magnesium (07/17/25 04:00) Lactic Acid W/ Reflex Order (07/17/25 04:00) Lactic Acid W/ Reflex Order (07/17/25 10:00) Norepinephrine 8 Mg/250ml Kit (Levophed) (07/17/25 02:30) Vancomycin Per Pharmacy (07/17/25 02:30) Vital Signs Date Time Temp Pulse Resp B/P (MAP) Pulse Ox O2 Delivery O2 Flow Rate FiO2 07/17/25 01:30 91 16 91/38 (55) 95 07/17/25 00:30 93 18 90/44 (59) 95 07/16/25 22:30 102 18 97/46 (63) 93 07/16/25 20:45 Nasal Cannula* 2 28 07/16/25 20:45 99.0 115 21 96/52 (67) 95 99.0 07/16/25 19:58 103.1 127 28 100/55 93 103.1 07/16/25 19:55 125 Laboratory Tests Test 07/16/25 20:50 07/16/25 22:43 Lactic Acid Level 3.2 mmol/L (0.4-2.0) *H 1.6 mmol/L (0.4-2.0) White Blood Count 11.4 10^3/uL (4.4-10.8) H Medications Medications Dose Ordered Sig/Luann Route Start Time Stop Time Status Last Admin Dose Admin Ceftriaxone Sodium 50 ml @ 100 mls/hr ONCE ONCE IV 07/16/25 21:30 07/16/25 21:59 DC 07/16/25 21:30 100 MLS/HR Sodium Chloride 1,800 ml @ 1,000 mls/hr ONCE ONCE IV 07/16/25 21:30 07/16/25 23:17 DC 07/16/25 21:30 1,000 MLS/HR Sodium Chloride 2,000 ml @ 100 mls/hr Q20H IV 07/17/25 01:00 07/17/25 20:59 07/17/25 01:24 100 MLS/HR Vancomycin HCl 250 ml @ 250 mls/hr ONCE ONCE IV 07/16/25 22:30 07/16/25 23:29 DC 07/16/25 22:46 250 MLS/HR Assessment/Plan Assessment/Plan Sepsis UTI DM with hyperglycemia Hypotension, normally hypertensive Acute kidney injury Plan Admit, SDU Consult infectious disease. Blood cultures pending. Urine cultures, pending. Broad Spectrum IV ABX. Can de-escalate ABX with blood culture results.. Vasopressor to maintain MAP > 65. IVF NS @ 100ml/hr Monitor BMP. Trend BUN/creatinine. Correct electrolytes as needed. Blood glucose checks with regular insulin sliding skill coverage DVT ppx heparin sq Plan discussed with: Patient My Orders Orders - AIDAN DIEHL NP Procedure Category Date Status Time Admit ADMIT 07/17/25 Transmitted 00:55 Code Status CODE 07/17/25 Transmitted 00:55 Vital Signs RACHID 07/17/25 In Process 00:55 Review Orders With RACHID 07/17/25 In Process Adm. 00:55 Encourage Activity As RACHID 07/17/25 In Process Tolerate 00:55 Consistent DIET 07/17/25 Transmitted Carb(Ccho)Diabetes Breakfast Sodium Chloride 0.9% PHA 07/17/25 In Process 01:00 Oxygen By Face Mask RT 07/17/25 Transmitted 00:55 Docusate Sodium PHA 07/17/25 In Process Capsule (Colace 01:00 Acetaminophen Tablet PHA 07/17/25 In Process (Tylenol Tablet) 01:00 Notify Of Changes RACHID 07/17/25 In Process From Base 00:55 Advance Directive RACHID 07/17/25 In Process 00:55 Basic Metabolic Panel LAB 07/17/25 Logged 05:00 Basic Metabolic Panel LAB 07/18/25 Verified 05:00 Basic Metabolic Panel LAB 07/19/25 Verified 05:00 Basic Metabolic Panel LAB 07/20/25 Verified 05:00 Basic Metabolic Panel LAB 07/21/25 Verified 05:00 Complete Blood Count LAB 07/17/25 Logged 05:00 Complete Blood Count LAB 07/18/25 Verified 05:00 Complete Blood Count LAB 07/19/25 Verified 05:00 Complete Blood Count LAB 07/20/25 Verified 05:00 Complete Blood Count LAB 07/21/25 Verified 05:00 Patient Condition ORDERS 07/17/25 Transmitted 00:55 Allergies RACHID 07/17/25 In Process 00:55 Hydrocodone-Acet PHA 07/17/25 In Process 5/325mg Tab ([place] 01:00 Ondansetron Hcl PHA 07/17/25 In Process (Zofran) 01:00 Nitroglycerin PHA 07/17/25 In Process Sublingual (Ntrostat 01:00 Morphine Sulfate PHA 07/17/25 In Process Injection 01:00 Stat Ekg For Chest RACHID 07/17/25 In Process Pain 00:55 Notify Of Changes RACHID 07/17/25 In Process From Base 00:55 Business Services Associate For RACHID 07/17/25 In Process 24 Hours 00:55 Emergency Dysrhythmia RACHID 07/17/25 In Process Protocol 00:55 Rhythm Strips Once RACHID 07/17/25 In Process Every Shift 00:55 Oxygen By Nasal RT 07/17/25 Transmitted Cannula 00:55 Glucose Blood PHA 07/17/25 In Process (Accu-Chek Comfort 07:00 Insulin R (Human) PHA 07/17/25 In Process (Insulin R) 07:00 Dextrose 50% Syringe PHA 07/17/25 In Process 01:00 * Infectious [place]- Dr. CONS 07/17/25 Transmitted [place] 00:55 Ceftriaxone 1gm/50ml PHA 07/17/25 In Process (Rocephin) 10:00 Magnesium LAB 07/17/25 Logged 04:00 Lactic Acid W/ Reflex LAB 07/17/25 Logged Order 04:00 Lactic Acid W/ Reflex LAB 07/17/25 Logged Order 10:00 Norepinephrine 8 PHA 07/17/25 In Process Mg/250ml Kit 02:30 Vancomycin Per PHA 07/17/25 Pending Pharmacy 02:30 Date of Service: Jul 17, 2025 Billing Provider: CRYSTAL CARDENAS MD Common Visit Codes: NOT BILLABLE AIDAN DIEHL NP Jul 17, 2025 02:51
[2025-07-17] MEDS: NOREPINEPHRINE 8 MG/250ML KIT 250 ML IV SCH (02:55)
[2025-07-17 04:05] LABS: Hematocrit 33.4 % (36.0-46.0); Hemoglobin 11.0 g/dL (12.2-16.2); Mean Corpuscular Hemoglobin 29.0 pg (28.0-32.0); Mean Corpuscular Volume 88.1 fL (80.0-100.0); Nucleated Red Blood Cells % 0.0 %
[2025-07-17 04:20] LABS: Anion Gap 10 (5-15); Carbon Dioxide 24 mmol/L (20-31); Chloride 102 mmol/L (98-107); Potassium 4.1 mmol/L (3.5-5.1); Sodium 136 mmol/L (136-145)
[2025-07-17 04:21] LABS: Calcium 8.3 mg/dL (8.7-10.4)
[2025-07-17 04:26] LABS: BUN/Creatinine Ratio 13.7 (10.0-20.0); Blood Urea Nitrogen 20 mg/dL (9-23)
[2025-07-17 04:29] LABS: Glucose 155 mg/dL (74-106)
[2025-07-17] MEDS: MORPHINE SULFATE INJ 2 MG/ml SYRG IV PRN (06:08)
[2025-07-17] MEDS: ONDANSETRON HCL 4 MG/2 ML VIAL IV PRN (06:08)
[2025-07-17] MEDS: InsuLIN REG 1unit/0.01ml Soln (100units/ml) SC SCH (06:41)
[2025-07-17] MEDS: ACCU-CHEK COMFORT CURVE STRIP VI SCH (06:41)
--- NOTE | 2025-07-17 06:42 | ECG ---
[facility] Test Date: 2025-07-16 Test Time: 19:55:12 Pat Name: TOVA ANTUNEZ Department: [facility] ED Room: 0240T Gender: F Road Test Examiner: melba : 1945 Requested By: EMERGENCY EMERGENCY Order Number: [id number] Reading MD: Star Ortega Measurements Intervals [place] Rate: 125 P: 55 ND: 153 QRS: 5 QRSD: 85 T: 5 QT: 313 QTc: 452 Interpretive Statements Sinus tachycardia Inferior infarct, old Consider anterior infarct Electronically Signed On 07-19-2025 15:01:02 PDT by Star Ortega Please click the below link to view image of tracing.
[2025-07-17 07:30] VITALS: PULSE 108; RESP 19; O2SAT 94
[2025-07-17 07:44] LABS: Lactic Acid w/Reflex 3.1 mmol/L (0.4-2.0)
--- NOTE | 2025-07-17 09:42 | DVHINCON2 ---
Date of service: Jul 17, 2025 Referring Physician CRYSTAL CARDENAS MD Reason for Consultation sepsis History of Present Illness Patient is a 80-year-old female with PMH significant for DM, hypertension, hyperlipidemia who presents with fevers, chills x3 days. She also reports nausea and vomiting for one day. she has a history UTI with sepsis in the past. On arrival to the emergency department, patient was noted to be febrile with temperature 103.1, tachycardic HR 127, and mildly hypotensive with blood pressure 100/55. Laboratory evaluation W11.4, H&H 10.4/31.8, PLT 238, Na 135, K3.9, BUN 24, creatinine 1.49, GFR 35, LA 3.2/1.6. UA positive for leukocyte esterase, WBC, CXR no acute disease, CT abdomen and pelvis without contrast read streak artifact from hardware, colonic diverticulosis with possible stranding about the sigmoid colon. Acute diverticulitis can not be excluded at this time. patient denies any dizziness, shortness of breath, cough, congestion chest pain, diarrhea, hematemesis, hematochezia, melena, dysuria ID is consulted due to sepsis Past Medical History Cardiovascular: HTN, hyperipidemia Endocrine: Diabetes Family History: Cardiovascular disease G8 FATHER Social History Smoke: No ALCOHOL: none Drugs: None Lives: with Family Allergies: Coded Allergies: Sulfa Antibiotics (Verified Allergy, Unknown, 06/01/21) Home Meds Active Scripts Benzonatate (Benzonatate) 200 Mg Cap, 1 CAP PO TID, #30 CAP Prov:EMELINA SZYMANSKI 07/11/24 Azithromycin (ZITHROMAX TABLET) 250 Mg Tb, 250 MG PO DAILY, #6 TAB Prov:EMELINA SZYMANSKI 07/11/24 Ciprofloxacin Hcl (Cipro) 500 Mg Tab, 1 TAB PO BID, #14 TAB Prov:OLGA LIDIA KLINE MD 10/15/23 Cephalexin (KEFLEX CAPSULE) 250 Mg Cp, 1 CAP PO QID, #40 CAP Prov:LIVAN NIEVES MD 10/12/23 Reported Medications Methocarbamol (Methocarbamol) 500 Mg Tab, 1 TAB PO Q6HPRN PRN for muscle spasm 10/13/23 Pregabalin (Lyrica) Unknown Strength Cap, PO, CAP 01/10/23 Amlodipine Besylate (NORVASC TABLET) 5 Mg Tb, 5 MG PO DAILY, TAB 01/10/23 Losartan Potassium (Losartan Potassium) 25 Mg Tab, 25 MG PO DAILY, TAB 01/10/23 Metformin Hydrochloride (Metformin Hcl) 500 Mg Tab, 500 MG PO BID, TAB 01/10/23 Simvastatin (Simvastatin) 20 Mg Tab, 20 MG PO DAILY, TAB 01/10/23 Oxycodone W/ Acetaminophen (Percocet 5/325MG) 1 Tab Tb, 1 TAB PO Q4HPRN PRN for prn, #90 TAB 12/15/22 Current Medications Current Medications Medications (Trade) Dose Ordered Sig/Luann Route PRN Reason Start Time Stop Time Status Last Admin Sodium Chloride 2,000 ml @ 100 mls/hr Q20H IV 07/17/25 01:00 07/17/25 20:59 07/17/25 01:24 Docusate Sodium (Colace Capsule) 100 mg BIDPRN PRN PO FOR CONSTIPATION 07/17/25 01:00 Acetaminophen (Tylenol Tablet) 650 mg Q6HP PRN PO PAIN SCALE 1-3 OR TEMP>100.4 07/17/25 01:00 Acetaminophen/ Hydrocodone Bitart ([place] 5/325MG Tab) 1 tab Q4HP PRN PO MODERATE PAIN (4-6 PAIN SCALE) 07/17/25 01:00 Ondansetron HCl (Zofran) 4 mg Q4HP PRN IV NAUSEA / VOMITING 07/17/25 01:00 07/17/25 06:08 Nitroglycerin (Ntrostat Sublingual) 0.4 mg Q5MINP PRN SL FOR CHEST PAIN 07/17/25 01:00 Morphine Sulfate 2 mg Q30M PRN IV FOR CHEST PAIN 07/17/25 01:00 07/17/25 06:08 Diagnostic Test (Pha) (Accu-Chek Comfort Curve T) 1 strip ACHS 07/17/25 07:00 07/17/25 06:41 Insulin Human Regular (InsuLIN R) ACHS SC 07/17/25 07:00 07/17/25 06:41 Dextrose 50 ml UD PRN IV Blood Sugar LESS THAN 60 07/17/25 01:00 Ceftriaxone Sodium 50 ml @ 100 mls/hr DAILY IV 07/17/25 10:00 Norepinephrine Bitartrate 250 ml @ 3.75 mls/hr Q24H IV 07/17/25 02:30 07/17/25 02:55 Vancomycin HCl 0 ml @ 0 mls/hr PER PHARMACY IV 07/17/25 02:30 Review of Systems General: Fever, chills, no night sweats or weight loss HEENT: No Sinus pain, headache, vision changes or sore throat Respiratory: No Cough, dyspnea, sputum production Cardiovascular: No Chest pain, palpitations or leg edema Gastrointestinal: Nausea and vomiting, no diarrhea, abdominal pain Genitourinary: No Dysuria, urinary frequency, hematuria, pelvic pain Skin: No Rashes, ulcers, abscesses, redness or swelling Musculoskeletal: No Joint pain, muscle pain or swelling Neurologic: No Altered mental status, headaches or focal neurological deficits Psychiatric: No Anxiety, depression or confusion Vital Signs Vital Signs Date Time Temp Pulse Resp B/P (MAP) Pulse Ox O2 Delivery O2 Flow Rate FiO2 07/17/25 07:30 108 19 94 Nasal Cannula* 3 32 07/17/25 07:30 99.3 100/52 (68) 99.3 Physical Exam General: Patient appears alert, comfortable and well-appearing. HEENT: Normocephalic, atraumatic, Sclera anicteric, conjunctiva clear, No nasal discharge or congestion. Mucous membranes moist, no tonsillar erythema or exudates. Neck: No cervical lymphadenopathy or masses. No neck stiffness. Lungs: Breath sounds clear bilaterally, no wheezes, rales, or rhonchi. No use of accessory muscles or respiratory distress. Cardiovascular: Regular rate and rhythm, no murmurs, rubs, or gallops. Abdomen: Soft, non-tender, non-distended. Bowel sounds present in all quadrants. No hepatosplenomegaly or masses. Skin: No rash, petechiae, or ecchymosis. Extremities: No edema, cyanosis, or clubbing. No tenderness to palpation, erythema, or swelling in joints. Neurologic: Patient is alert and oriented to person, place, and time. Cranial nerves II-XII intact. gross motor intact Labs/Diagnostic Data Labs Test 07/17/25 06:51 07/17/25 05:55 07/17/25 03:52 07/16/25 21:20 Range/Units Lactic Acid Level 3.1 *H 0.4-2.0 mmol/L POC Glucose 140 H 70-106 mg/dl White Blood Count 15.9 #H 4.4-10.8 10^3/uL Red Blood Count 3.78 L 4.0-5.20 10^6/uL Hemoglobin 11.0 L 12.2-16.2 g/dL Hematocrit 33.4 L 36.0-46.0 % Mean Corpuscular Volume 88.1 80.0-100.0 fL Mean Corpuscular Hemoglobin 29.0 28.0-32.0 pg Mean Corpuscular Hemoglobin Concent 32.9 32.0-36.0 g/dL Red Cell Distribution Width 14.3 11.8-14.3 % Platelet Count 283 140-450 10^3/uL Mean Platelet Volume 8.4 6.9-10.8 fL Neutrophils (%) (Auto) 84.3 H 37.0-80.0 % Lymphocytes (%) (Auto) 7.5 L 10.0-50.0 % Monocytes (%) (Auto) 7.2 0.0-12.0 % Eosinophils (%) (Auto) 0.6 0.0-7.0 % Basophils (%) (Auto) 0.4 0.0-2.0 % Neutrophils # (Auto) 13.4 H 1.6-8.6 10 ^3/uL Lymphocytes # (Auto) 1.2 0.4-5.4 10 ^3/uL Monocytes # (Auto) 1.1 0-1.3 10 ^3/uL Eosinophils # (Auto) 0.1 0-0.8 10 ^3/uL Basophils # (Auto) 0.1 0-0.2 10 ^3/uL Nucleated Red Blood Cells 0.0 % Sodium Level 136 136-145 mmol/L Potassium Level 4.1 3.5-5.1 mmol/L Chloride Level 102 98-107 mmol/L Carbon Dioxide Level 24 20-31 mmol/L Anion Gap 10 5-15 Blood Urea Nitrogen 20 9-23 mg/dL Creatinine 1.46 H 0.550-1.02 mg/dL Glomerular Filtration Rate Calc 36 >90 mL/min BUN/Creatinine Ratio 13.7 10.0-20.0 Serum Glucose 155 H 74-106 mg/dL Calcium Level 8.3 L 8.7-10.4 mg/dL Magnesium Level 2.0 1.6-2.6 mg/dL Urine Color Light-yellow Yellow Urine Clarity Turbid H Clear Urine pH 6.0 5.0-9.0 Urine Specific [place] 1.016 1.001-1.035 Urine Protein 1+ H Negative Urine Ketones Negative Negative Urine Blood Negative Negative /uL Urine Nitrite 2+ H Negative Urine Bilirubin Negative Negative Urine Urobilinogen Normal Negative mg/dL Urine Leukocyte Esterase 3+ Negative /uL Urine RBC 4 0 - 4 /hpf Urine Microscopic WBC 146 H 0-5 /HPF Urine Squamous Epithelial Cells Few <5 /hpf Urine Bacteria Few H None Seen /hpf Urine Mucus Few None Seen Urine Glucose Normal Normal mg/dL Test 07/16/25 20:50 Range/Units Total Bilirubin 0.8 0.2-1.0 mg/dL Aspartate Amino Transferase (AST) 22 13-40 U/L Alanine Aminotransferase (ALT) 19 7-40 U/L Alkaline Phosphatase 71 46-116 U/L Total Protein 6.6 5.7-8.2 g/dL Albumin 4.1 3.2-4.8 g/dL Assessment A 80 yo female with Sepsis Bacteremia with GNR Hypotension UTI Acute Diverticulitis DM with hyperglycemia Acute kidney injury recommendations Vasopressor to maintain MAP > 65. Blood cultures +ve for : Positive for Gram Negative rods. Urine cultures, pending. Broad Spectrum IV ABX. continue IV Vancomycin and Ceftriaxone trend wbc Monitor BMP. Trend BUN/creatinine. reviewed CXR personally, no consolidation reviewed CT abd report Total time spent 80 Minutes during the encounter. Thank you for the consult Plan discussed with: Other MAURILIO GIL MD Jul 17, 2025 09:42
[2025-07-17 19:30] VITALS: PULSE 95
[2025-07-17] MEDS: MELATONIN 5 MG TAB PO SCH (21:21)
[2025-07-18] VITALS (7 sets, daily range): BP systolic 123–153; BP diastolic 69–79; PULSE 85–105; RESP 18–20; TEMP 98.7–98.8; O2SAT 94–99
[2025-07-18 03:52] LABS: Chloride 105 mmol/L (98-107); Hematocrit 27.7 % (36.0-46.0); Hemoglobin 9.4 g/dL (12.2-16.2); Mean Corpuscular Hemoglobin 29.9 pg (28.0-32.0); Mean Corpuscular Volume 88.6 fL (80.0-100.0); Nucleated Red Blood Cells % 0.0 %; Potassium 3.8 mmol/L (3.5-5.1); Sodium 140 mmol/L (136-145)
[2025-07-18 03:53] LABS: Anion Gap 11 (5-15); Carbon Dioxide 24 mmol/L (20-31)
[2025-07-18 03:56] LABS: Calcium 8.1 mg/dL (8.7-10.4)
[2025-07-18 03:58] LABS: BUN/Creatinine Ratio 13.4 (10.0-20.0); Blood Urea Nitrogen 15 mg/dL (9-23)
[2025-07-18 03:59] LABS: Glucose 115 mg/dL (74-106)
[2025-07-18] MEDS: ACETAMINOPHEN 325 MG TAB PO PRN (05:14)
--- NOTE | 2025-07-18 08:57 | DVHPN2 ---
Progress Note - Dictate Date Seen: Jul 18, 2025 Medical Necessity Reason Pt with a Central, PICC or Fol: No Subjective Patient is on floor Currently stable. vital signs Vital Sign Date Time Temp Pulse Resp B/P (MAP) Pulse Ox O2 Delivery O2 Flow Rate FiO2 07/18/25 07:00 88 18 119/52 (74) 97 07/18/25 06:00 97.7 97.7 07/17/25 19:30 Nasal Cannula* 3 32 Total Intake and Output 07/17/25 07/17/25 07/18/25 15:00 23:00 07:00 Intake Total 950 ml 800 ml 300 ml Balance 950 ml 800 ml 300 ml medications Current Medications Medications Dose Ordered Sig/Luann Route Start Time Stop Time Status Last Admin Dose Admin Docusate Sodium 100 mg BIDPRN PRN PO 07/17/25 01:00 Acetaminophen 650 mg Q6HP PRN PO 07/17/25 01:00 07/18/25 05:14 650 MG Acetaminophen/ Hydrocodone Bitart 1 tab Q4HP PRN PO 07/17/25 01:00 Ondansetron HCl 4 mg Q4HP PRN IV 07/17/25 01:00 07/17/25 06:08 4 MG Nitroglycerin 0.4 mg Q5MINP PRN SL 07/17/25 01:00 Morphine Sulfate 2 mg Q30M PRN IV 07/17/25 01:00 07/17/25 06:08 2 MG Diagnostic Test (Pha) 1 strip ACHS 07/17/25 07:00 07/18/25 07:06 1 STRIP Insulin Human Regular ACHS SC 07/17/25 07:00 07/17/25 21:22 2 UNITS Dextrose 50 ml UD PRN IV 07/17/25 01:00 Norepinephrine Bitartrate 250 ml @ 3.75 mls/hr Q24H IV 07/17/25 02:30 07/17/25 02:55 3.75 MLS/HR Vancomycin HCl 0 ml @ 0 mls/hr PER PHARMACY IV 07/17/25 02:30 Ceftriaxone Sodium/Dextrose 50 ml @ 50 mls/hr DAILY IV 07/18/25 10:00 Melatonin 5 mg HS PO 07/17/25 22:00 07/17/25 21:21 5 MG objective General: Patient appears alert, comfortable and well-appearing. HEENT: Normocephalic, atraumatic, Sclera anicteric, conjunctiva clear, No nasal discharge or congestion. Mucous membranes moist, no tonsillar erythema or exudates. Neck: No cervical lymphadenopathy or masses. No neck stiffness. Lungs: Breath sounds clear bilaterally, no wheezes, rales, or rhonchi. No use of accessory muscles or respiratory distress. Cardiovascular: Regular rate and rhythm, no murmurs, rubs, or gallops. Abdomen: Soft, non-tender, non-distended. Bowel sounds present in all quadrants. No hepatosplenomegaly or masses. Skin: No rash, petechiae, or ecchymosis. Extremities: No edema, cyanosis, or clubbing. No tenderness to palpation, erythema, or swelling in joints. No signs of deep vein thrombosis (DVT). Neurologic: Patient is alert and oriented to person, place, and time. Cranial nerves II-XII intact. Motor strength 5/5 bilaterally in all extremities. laboratory and microbiology Laboratory Tests 07/18/25 03:07 Test 07/18/25 03:07 Range/Units Serum Glucose 115 H 74-106 mg/dL Assessment/Plan A 80 yo female with Sepsis Bacteremia with GNR Hypotension UTI Acute Diverticulitis DM with hyperglycemia Acute kidney injury recommendations off Vasopressor ; downgraded to tele Blood cultures +ve for : Positive for Gram Negative rods. follow ID and sensitivity DC Vancomycin, Urine cultures, pending. Continue IV Ceftriaxone wbc is normal Monitor BMP. Trend BUN/creatinine. reviewed CXR personally, no consolidation reviewed CT abd report Total time spent 50 Minutes during the encounter. Thank you for the consult Plan discussed with: MAURILIO Pardo MD Jul 18, 2025 08:57
[2025-07-19] VITALS (8 sets, daily range): BP systolic 114–136; BP diastolic 62–72; PULSE 58–112; RESP 16–19; TEMP 97.6–101.1; O2SAT 93–100
[2025-07-19 05:58] LABS: Hematocrit 32.0 % (36.0-46.0); Hemoglobin 10.2 g/dL (12.2-16.2); Mean Corpuscular Hemoglobin 28.8 pg (28.0-32.0); Mean Corpuscular Volume 90.6 fL (80.0-100.0); Nucleated Red Blood Cells % 0.1 %
[2025-07-19 06:15] LABS: Chloride 105 mmol/L (98-107); Potassium 4.4 mmol/L (3.5-5.1); Sodium 139 mmol/L (136-145)
[2025-07-19 06:16] LABS: Anion Gap 12 (5-15); Carbon Dioxide 22 mmol/L (20-31)
[2025-07-19 06:21] LABS: BUN/Creatinine Ratio 14.3 (10.0-20.0); Blood Urea Nitrogen 15 mg/dL (9-23)
[2025-07-19 06:23] LABS: Calcium 8.1 mg/dL (8.7-10.4); Glucose 121 mg/dL (74-106)
--- NOTE | 2025-07-19 09:21 | DVHPN2 ---
Progress Note - Dictate Date Seen: Jul 19, 2025 Medical Necessity Reason Pt with a Central, PICC or Fol: No Subjective Patient is on floor. Currently stable. WBC values are again increasing 11.4k vital signs Vital Sign Date Time Temp Pulse Resp B/P (MAP) Pulse Ox O2 Delivery O2 Flow Rate FiO2 07/19/25 05:00 98.5 95 18 119/62 (81) 95 98.5 07/18/25 20:00 Room Air* 0 21 Total Intake and Output 07/18/25 07/18/25 07/19/25 15:00 23:00 07:00 Intake Total 50 ml 200 ml 240 ml Balance 50 ml 200 ml 240 ml medications Current Medications Medications Dose Ordered Sig/Luann Route Start Time Stop Time Status Last Admin Dose Admin Docusate Sodium 100 mg BIDPRN PRN PO 07/17/25 01:00 Acetaminophen 650 mg Q6HP PRN PO 07/17/25 01:00 07/19/25 01:18 650 MG Acetaminophen/ Hydrocodone Bitart 1 tab Q4HP PRN PO 07/17/25 01:00 Ondansetron HCl 4 mg Q4HP PRN IV 07/17/25 01:00 07/17/25 06:08 4 MG Nitroglycerin 0.4 mg Q5MINP PRN SL 07/17/25 01:00 Morphine Sulfate 2 mg Q30M PRN IV 07/17/25 01:00 07/17/25 06:08 2 MG Diagnostic Test (Pha) 1 strip ACHS 07/17/25 07:00 07/19/25 06:45 1 STRIP Insulin Human Regular ACHS SC 07/17/25 07:00 07/17/25 21:22 2 UNITS Dextrose 50 ml UD PRN IV 07/17/25 01:00 Ceftriaxone Sodium/Dextrose 50 ml @ 50 mls/hr DAILY IV 07/18/25 10:00 07/19/25 08:57 50 MLS/HR Melatonin 5 mg HS PO 07/17/25 22:00 07/18/25 21:04 5 MG objective General: Patient appears alert, comfortable and well-appearing. HEENT: Normocephalic, atraumatic, Sclera anicteric, conjunctiva clear, No nasal discharge or congestion. Mucous membranes moist, no tonsillar erythema or exudates. Neck: No cervical lymphadenopathy or masses. No neck stiffness. Lungs: Breath sounds clear bilaterally, no wheezes, rales, or rhonchi. No use of accessory muscles or respiratory distress. Cardiovascular: Regular rate and rhythm, no murmurs, rubs, or gallops. Abdomen: Soft, non-tender, non-distended. Bowel sounds present in all quadrants. No hepatosplenomegaly or masses. Skin: No rash, petechiae, or ecchymosis. Extremities: No edema, cyanosis, or clubbing. No tenderness to palpation, erythema, or swelling in joints. No signs of deep vein thrombosis (DVT). Neurologic: Patient is alert and oriented to person, place, and time. Cranial nerves II-XII intact. Motor strength 5/5 bilaterally in all extremities. laboratory and microbiology Laboratory Tests 07/19/25 05:15 Test 07/19/25 05:15 Range/Units Serum Glucose 121 H 74-106 mg/dL Assessment/Plan A 80 yo female with Sepsis Bacteremia with GNR Hypotension UTI Acute Diverticulitis DM with hyperglycemia Acute kidney injury recommendations Blood cultures +ve for : Positive for Gram Negative rods. follow ID and sensitivity DC Vancomycin, Urine cultures, pending. Continue IV Ceftriaxone repeat blood cx ordered wbc is increasing again 11.4k; monitor closely Monitor BMP. Trend BUN/creatinine. reviewed CXR personally, no consolidation reviewed CT abd report Total time spent 50 Minutes during the encounter. Thank you for the consult Plan discussed with: MAURILIO Pardo MD Jul 19, 2025 09:21
--- NOTE | 2025-07-19 16:13 | DVHPN2 ---
Subjective Overnight events noted. Patient currently denies any fevers chills. Changes from previous H/P or p: No Changes Eyes: No Pain, No Vision change, No Conjunctivae inflammation, No Eyelid inflammation, No Other, No Redness ENT: No Ear pain, No Ear discharge, No Nose pain, No Nose discharge, No Nose congestion, No Mouth pain, No Mouth swelling, No Throat pain, No Throat swelling, No Other Cardiovascular: No Chest Pain, No Palpitations, No Orthopnea, No Paroxysmal Noc. Dyspnea, No Edema, No Lt Headedness, No Other Respiratory: No Cough, No Dry, No Shortness of breath, No SOB with excertion, No Wheezing, No Hemoptysis, No Pleuritic Pain, No Sputum, No Other Gastrointestinal: Nausea, Vomiting; No Abdominal Pain, No Diarrhea, No Constipation, No Melena, No Hematochezia, No Other Genitourinary: No Dysuria, No Frequency, No Incontinence, No Hematuria, No Retention, No Other Musculoskeletal: No other, No neck pain, No shoulder pain, No arm pain, No back pain, No hand pain, No leg pain, No foot pain Skin: No Rash, No Lesions, No Jaundice, No Bruising, No Other Objective Vitals Vital Signs Date Time Temp Pulse Resp B/P (MAP) Pulse Ox O2 Delivery O2 Flow Rate FiO2 07/19/25 13:00 98.4 94 16 114/69 (84) 95 98.4 07/19/25 08:00 Room Air* 0 21 Intake/Output Intake and Output 07/19/25 07:00 Intake Total 490 ml Balance 490 ml Intake Oral 440 ml IV Total 50 ml # Voids 8 # Bowel Movements 2 Exam HEENT pupils are reactive Neck is supple CV is S1-S2 regular rate and rhythm Respiratory are clear GI posterior bowel sound Extremity no edema [employer] no motor deficit Medications Current Medications Medications Dose Ordered Sig/Luann Route Start Time Stop Time Status Last Admin Dose Admin Docusate Sodium 100 mg BIDPRN PRN PO 07/17/25 01:00 Acetaminophen 650 mg Q6HP PRN PO 07/17/25 01:00 07/19/25 01:18 650 MG Acetaminophen/ Hydrocodone Bitart 1 tab Q4HP PRN PO 07/17/25 01:00 Ondansetron HCl 4 mg Q4HP PRN IV 07/17/25 01:00 07/17/25 06:08 4 MG Nitroglycerin 0.4 mg Q5MINP PRN SL 07/17/25 01:00 Morphine Sulfate 2 mg Q30M PRN IV 07/17/25 01:00 07/17/25 06:08 2 MG Diagnostic Test (Pha) 1 strip ACHS 07/17/25 07:00 07/19/25 11:30 1 STRIP Insulin Human Regular ACHS SC 07/17/25 07:00 07/17/25 21:22 2 UNITS Dextrose 50 ml UD PRN IV 07/17/25 01:00 Ceftriaxone Sodium/Dextrose 50 ml @ 50 mls/hr DAILY IV 07/18/25 10:00 07/19/25 08:57 50 MLS/HR Melatonin 5 mg HS PO 07/17/25 22:00 07/18/25 21:04 5 MG Laboratory Results Laboratory Tests 07/19/25 05:15 Chemistry Test 07/19/25 05:15 Calcium Level 8.1 mg/dL (8.7-10.4) L Urinalysis Test 07/16/25 21:20 Urine Color Light-yellow (Yellow) Urine Clarity Turbid (Clear) H Urine pH 6.0 (5.0-9.0) Urine Specific [place] 1.016 (1.001-1.035) Urine Protein 1+ (Negative) H Urine Ketones Negative (Negative) Urine Blood Negative /uL (Negative) Urine Nitrite 2+ (Negative) H Urine Bilirubin Negative (Negative) Urine Urobilinogen Normal mg/dL (Negative) Urine Leukocyte Esterase 3+ /uL (Negative) Urine RBC 4 /hpf (0 - 4) Urine Microscopic WBC 146 /HPF (0-5) H Urine Squamous Epithelial Cells Few /hpf (<5) Urine Bacteria Few /hpf (None Seen) H Urine Mucus Few (None Seen) Urine Glucose Normal mg/dL (Normal) Microbiology Microbiology Date/Time Source Procedure Growth Status 07/18/25 14:53 Blood Blood Culture - Preliminary NO GROWTH AFTER 24 HOURS OF INCUBATION. Resulted 07/16/25 21:20 Voided Urine Urine Culture - Final Complete Assessment/Plan Assessment/Plan 80-year-old female with a known history of diabetes mellitus type 2, hypertension, dyslipidemia who initially presented to the hospital with fevers chills nausea vomiting found to have 1. Sepsis secondary to Gram-negative bacteremia 2. Gram-negative bacteremia 3. Urinary tract infection 4. Acute kidney injury suspected secondary to vasomotor nephropathy 5. Diabetes mellitus type 2 6. Hypotension requiring IV vasopressor, with a known history of hypertension, currently off vasopressor 7. Dyslipidemia -repeat blood cultures, continue IV antibiotics, discharge plan once cultures x2 days back. Plan discussed with: Patient Date of Service: Jul 19, 2025 Billing Provider: CRYSTAL CARDENAS MD Common Visit Codes: NOT BILLABLE CRYSTAL CARDENAS MD Jul 19, 2025 16:13
[2025-07-20 01:00] VITALS: BP 125/65; PULSE 85; RESP 18; TEMP 97.8; O2SAT 95
[2025-07-20 04:49] VITALS: BP 97/64; PULSE 89; RESP 18; TEMP 97.9; O2SAT 94
[2025-07-20 06:08] LABS: Hematocrit 27.8 % (36.0-46.0); Hemoglobin 9.4 g/dL (12.2-16.2); Mean Corpuscular Hemoglobin 29.2 pg (28.0-32.0); Mean Corpuscular Volume 86.6 fL (80.0-100.0); Nucleated Red Blood Cells % 0.0 %
[2025-07-20 06:26] LABS: Anion Gap 11 (5-15); Carbon Dioxide 25 mmol/L (20-31); Chloride 104 mmol/L (98-107); Sodium 140 mmol/L (136-145)
[2025-07-20 06:32] LABS: BUN/Creatinine Ratio 11.2 (10.0-20.0); Blood Urea Nitrogen 11 mg/dL (9-23); Glucose 95 mg/dL (74-106)
[2025-07-20 06:36] LABS: Calcium 8.3 mg/dL (8.7-10.4); Potassium 3.4 mmol/L (3.5-5.1)
--- NOTE | 2025-07-20 07:27 | DVHPN2 ---
Progress Note - Dictate Date Seen: Jul 20, 2025 Medical Necessity Reason Pt with a Central, PICC or Fol: No Subjective Patient is currently stable and denies any complaints WBC values are in normal range vital signs Vital Sign Date Time Temp Pulse Resp B/P (MAP) Pulse Ox O2 Delivery O2 Flow Rate FiO2 07/20/25 04:49 97.9 89 18 97/64 (75) 94 97.9 07/19/25 20:00 Room Air* 0 21 Total Intake and Output 07/19/25 07/19/25 07/20/25 15:00 23:00 07:00 Intake Total 700 ml 300 ml Balance 700 ml 300 ml medications Current Medications Medications Dose Ordered Sig/Luann Route Start Time Stop Time Status Last Admin Dose Admin Docusate Sodium 100 mg BIDPRN PRN PO 07/17/25 01:00 Acetaminophen 650 mg Q6HP PRN PO 07/17/25 01:00 07/19/25 01:18 650 MG Acetaminophen/ Hydrocodone Bitart 1 tab Q4HP PRN PO 07/17/25 01:00 Ondansetron HCl 4 mg Q4HP PRN IV 07/17/25 01:00 07/17/25 06:08 4 MG Nitroglycerin 0.4 mg Q5MINP PRN SL 07/17/25 01:00 Morphine Sulfate 2 mg Q30M PRN IV 07/17/25 01:00 07/17/25 06:08 2 MG Diagnostic Test (Pha) 1 strip ACHS 07/17/25 07:00 07/20/25 06:06 1 STRIP Insulin Human Regular ACHS SC 07/17/25 07:00 07/19/25 21:52 3 UNITS Dextrose 50 ml UD PRN IV 07/17/25 01:00 Ceftriaxone Sodium/Dextrose 50 ml @ 50 mls/hr DAILY IV 07/18/25 10:00 07/19/25 08:57 50 MLS/HR Melatonin 5 mg HS PO 07/17/25 22:00 07/19/25 21:50 5 MG objective General: Patient appears alert, comfortable and well-appearing. HEENT: Normocephalic, atraumatic, Sclera anicteric, conjunctiva clear, No nasal discharge or congestion. Mucous membranes moist, no tonsillar erythema or exudates. Neck: No cervical lymphadenopathy or masses. No neck stiffness. Lungs: Breath sounds clear bilaterally, no wheezes, rales, or rhonchi. No use of accessory muscles or respiratory distress. Cardiovascular: Regular rate and rhythm, no murmurs, rubs, or gallops. Abdomen: Soft, non-tender, non-distended. Bowel sounds present in all quadrants. No hepatosplenomegaly or masses. Skin: No rash, petechiae, or ecchymosis. Extremities: No edema, cyanosis, or clubbing. No tenderness to palpation, erythema, or swelling in joints. No signs of deep vein thrombosis (DVT). Neurologic: Patient is alert and oriented to person, place, and time. Cranial nerves II-XII intact. Motor strength 5/5 bilaterally in all extremities. laboratory and microbiology Laboratory Tests 07/20/25 05:13 Test 07/20/25 05:13 Range/Units Serum Glucose 95 74-106 mg/dL Assessment/Plan A 80 yo female with Sepsis Bacteremia with GNR Hypotension UTI Acute Diverticulitis DM with hyperglycemia Acute kidney injury recommendations Blood cultures +ve for : Positive for Gram Negative rods. follow ID and sensitivity DC Vancomycin, Urine cultures, pending. Continue IV Ceftriaxone repeat blood cx ordered wbc is with in the normal range - 7.8K Monitor BMP. Trend BUN/creatinine. reviewed CXR personally, no consolidation reviewed CT abd report Total time spent 50 Minutes during the encounter. Thank you for the consult Dietary Evaluation Review Comments: Monitor PO intake, lab values, weight trend, and I/O Expected Outcomes/Goals: Intake to meet >75% estimated needs Lab values to improve Fu 3-5 days MAURILIO GIL MD Jul 20, 2025 07:26
[2025-07-20 08:00] VITALS: PULSE 88; PULSE 90; RESP 18; O2SAT 95
[2025-07-20 09:04] VITALS: BP 138/77; PULSE 90; RESP 18; TEMP 98.2; O2SAT 96
[2025-07-20 13:00] VITALS: BP 104/69; PULSE 88; RESP 18; TEMP 98.6; O2SAT 95
[2025-07-20] MEDS ORDERED: CEPH500C PO (14:10)
--- NOTE | 2025-07-20 14:12 | DVHDS2 ---
Discharge Summary Date of Admission Jul 17, 2025 at 00:55 Date of Discharge: Jul 20, 2025 Labs/Diagnostic Data: Laboratory Results Test 07/20/25 12:18 07/20/25 05:13 07/18/25 03:07 07/17/25 10:00 POC Glucose 101 mg/dl (70-106) White Blood Count 7.8 10^3/uL (4.4-10.8) Red Blood Count 3.20 10^6/uL (4.0-5.20) Hemoglobin 9.4 g/dL (12.2-16.2) Hematocrit 27.8 % (36.0-46.0) Mean Corpuscular Volume 86.6 fL (80.0-100.0) Mean Corpuscular Hemoglobin 29.2 pg (28.0-32.0) Mean Corpuscular Hemoglobin Concent 33.7 g/dL (32.0-36.0) Red Cell Distribution Width 13.7 % (11.8-14.3) Platelet Count 301 10^3/uL (140-450) Mean Platelet Volume 7.9 fL (6.9-10.8) Neutrophils (%) (Auto) 64.5 % (37.0-80.0) Lymphocytes (%) (Auto) 18.1 % (10.0-50.0) Monocytes (%) (Auto) 13.2 % (0.0-12.0) Eosinophils (%) (Auto) 3.6 % (0.0-7.0) Basophils (%) (Auto) 0.6 % (0.0-2.0) Neutrophils # (Auto) 5.1 10 ^3/uL (1.6-8.6) Lymphocytes # (Auto) 1.4 10 ^3/uL (0.4-5.4) Monocytes # (Auto) 1.0 10 ^3/uL (0-1.3) Eosinophils # (Auto) 0.3 10 ^3/uL (0-0.8) Basophils # (Auto) 0 10 ^3/uL (0-0.2) Nucleated Red Blood Cells 0.0 % Sodium Level 140 mmol/L (136-145) Potassium Level 3.4 mmol/L (3.5-5.1) Chloride Level 104 mmol/L (98-107) Carbon Dioxide Level 25 mmol/L (20-31) Anion Gap 11 (5-15) Blood Urea Nitrogen 11 mg/dL (9-23) Creatinine 0.98 mg/dL (0.550-1.02) Glomerular Filtration Rate Calc 58 mL/min (>90) BUN/Creatinine Ratio 11.2 (10.0-20.0) Serum Glucose 95 mg/dL (74-106) Calcium Level 8.3 mg/dL (8.7-10.4) Random Vancomycin Level 5.7 ug/mL (5-10) Lactic Acid Level 1.5 mmol/L (0.4-2.0) Test 07/17/25 03:52 07/16/25 21:20 07/16/25 20:50 Magnesium Level 2.0 mg/dL (1.6-2.6) Urine Color Light-yellow (Yellow) Urine Clarity Turbid (Clear) Urine pH 6.0 (5.0-9.0) Urine Specific [place] 1.016 (1.001-1.035) Urine Protein 1+ (Negative) Urine Ketones Negative (Negative) Urine Blood Negative /uL (Negative) Urine Nitrite 2+ (Negative) Urine Bilirubin Negative (Negative) Urine Urobilinogen Normal mg/dL (Negative) Urine Leukocyte Esterase 3+ /uL (Negative) Urine RBC 4 /hpf (0 - 4) Urine Microscopic WBC 146 /HPF (0-5) Urine Squamous Epithelial Cells Few /hpf (<5) Urine Bacteria Few /hpf (None Seen) Urine Mucus Few (None Seen) Urine Glucose Normal mg/dL (Normal) Total Bilirubin 0.8 mg/dL (0.2-1.0) Aspartate Amino Transferase (AST) 22 U/L (13-40) Alanine Aminotransferase (ALT) 19 U/L (7-40) Alkaline Phosphatase 71 U/L (46-116) Total Protein 6.6 g/dL (5.7-8.2) Albumin 4.1 g/dL (3.2-4.8) Other Laboratory Tests 07/20/25 05:13 Brief Hx & Hospital Course: 80year-old female with a known history of diabetes mellitus type 2, hypertension, dyslipidemia who initially presented to the hospital with fevers chills nausea vomiting found to have sepsis secondary to Gram-negative bacteremia. Patient's blood cultures were positive. Patient also had UTI. Patient's symptoms has been resolved. Patient's repeat blood cultures are negative. Patient was receiving IV antibiotics during the hospital stay which will be switched to p.o. Keflex 1 g p.o. b.i.d. for seven more days. Patient is being discharged under stable condition. Condition at Discharge: Stable Final Diagnosis/Problems List 80 year-old female with a known history of diabetes mellitus type 2, hypertension, dyslipidemia who initially presented to the hospital with fevers chills nausea vomiting found to have 1. Sepsis secondary to Gram-negative bacteremia 2. Gram-negative bacteremia 3. Urinary tract infection 4. Acute kidney injury suspected secondary to vasomotor nephropathy 5. Diabetes mellitus type 2 6. Hypotension requiring IV vasopressor, with a known history of hypertension, currently off vasopressor 7. Dyslipidemia Discharge Disposition: Home with [facility] Services [facility] Discharge Will this Physician continue t: No Discharge Instruct/Medications Diet: Cardiac 2g Na,low cholest Activity: No Restrictions, As Tolerated Follow Up/Referral: Please follow up with the PCP in 1-2 weeks Medications: Resume home medications, new prescription as prescribed. New Medications: Cephalexin Monohydrate (Cephalexin) 500 Mg Cap 2 CAP PO BID for 7 Days, #28 CAP Continued Medications: Amlodipine Besylate (Norvasc Tablet) 5 Mg Tb 5 MG PO DAILY, TAB Benzonatate (Benzonatate) 200 Mg Cap 1 CAP PO TID, #30 CAP Losartan Potassium (Losartan Potassium) 25 Mg Tab 25 MG PO DAILY, TAB Metformin Hydrochloride (Metformin Hcl) 500 Mg Tab 500 MG PO BID, TAB Methocarbamol (Methocarbamol) 500 Mg Tab 1 TAB PO Q6HPRN PRN for muscle spasm Oxycodone W/ Acetaminophen (Percocet 5/325MG) 1 Tab Tb 1 TAB PO Q4HPRN PRN for prn, #90 TAB Pregabalin (Lyrica) Unknown Strength Cap Unknown Dose PO, CAP Simvastatin (Simvastatin) 20 Mg Tab 20 MG PO DAILY, TAB Discontinued Medications: Azithromycin (Zithromax Tablet) 250 Mg Tb 250 MG PO DAILY, #6 TAB Cephalexin (Keflex Capsule) 250 Mg Cp 1 CAP PO QID, #40 CAP Ciprofloxacin Hcl (Cipro) 500 Mg Tab 1 TAB PO BID, #14 TAB Scheduled Amlodipine Besylate (Norvasc Tablet), 5 MG PO DAILY, (Reported) Benzonatate (Benzonatate), 1 CAP PO TID Cephalexin Monohydrate (Cephalexin), 2 CAP PO BID Losartan Potassium (Losartan Potassium), 25 MG PO DAILY, (Reported) Metformin Hydrochloride (Metformin Hcl), 500 MG PO BID, (Reported) Simvastatin (Simvastatin), 20 MG PO DAILY, (Reported) Scheduled PRN Methocarbamol (Methocarbamol), 1 TAB PO Q6HPRN PRN for muscle spasm, (Reported) Oxycodone W/ Acetaminophen (Percocet 5/325MG), 1 TAB PO Q4HPRN PRN for prn, (Reported) Miscellaneous Medications Pregabalin (Lyrica), Unknown Dose PO, (Reported) Discontinued Medications Azithromycin (Zithromax Tablet), 250 MG PO DAILY Cephalexin (Keflex Capsule), 1 CAP PO QID Ciprofloxacin Hcl (Cipro), 1 TAB PO BID Discharge Statement: "Patient was advised to return to the ER or call 911 if any headaches, dizziness, shortness of breath, chest pain, abdominal pain, bleeding, fevers, or worsening of medical condition. Patient was counseled about treatment plan, medications, possible side effects, patientverbalized understanding. All questions were answered to the best of my ability. This discharge took greater then 30 minutes in planning, reviewing documentation, counseling the patient, and discussing with other team members." ASSESSMENT ASSESSMENT Assessment 1-year-old female with a known history of diabetes mellitus type 2, hypertension, dyslipidemia who initially presented to the hospital with fevers chills nausea vomiting found to have 1. Sepsis secondary to Gram-negative bacteremia 2. Gram-negative bacteremia 3. Urinary tract infection 4. Acute kidney injury suspected secondary to vasomotor nephropathy 5. Diabetes mellitus type 2 6. Hypotension requiring IV vasopressor, with a known history of hypertension, currently off vasopressor 7. Dyslipidemia Date of Service: Jul 20, 2025 Billing Provider: CRYSTAL CARDENAS MD Common Visit Codes: NOT BILLABLE CRYSTAL CARDENAS MD Jul 20, 2025 14:12
[2025-07-20] MEDS: POTASSIUM CHL 20 Meq TABLET PO ONE (15:18)
[2025-07-20] MEDS ORDERED: POTASSIUM CHL 20 Meq TABLET PO ONE (15:20)
== END 2025-07-20 15:57 | disposition home or self-care (01) | DRG 871 ==
LOC: EDBD 19:51 → ER 19:52 → OVERFLOW 07-17 00:55 → TELE-EAST 07-18 15:44
PROVIDERS: ADMIT Nurse Practitioner Family; ATTEND Nurse Practitioner Family
DX: A41.50 Gram-negative sepsis, unspecified (principal); N17.0 Acute kidney failure with tubular necrosis; N39.0 Urinary tract infection, site not specified; K57.32 Diverticulitis of large intestine without perforation or abscess without bleeding; E87.20 Acidosis, unspecified; E11.65 Type 2 diabetes mellitus with hyperglycemia; I10 Essential (primary) hypertension; E78.5 Hyperlipidemia, unspecified; Z82.49 Family history of ischemic heart disease and other diseases of the circulatory system; Z87.440 Personal history of urinary (tract) infections; Z79.84 Long term (current) use of oral hypoglycemic drugs; Z79.899 Other long term (current) drug therapy; I95.9 Hypotension, unspecified
CPT/HCPCS: 36415; 71045; 74176; 80048; 80053; 80202; 81001; 82962; 83605; 83735; 85025; 87040; 87077; 87086; 87186; 93005; 96365; 96375; G0378; J1815; J2405